=== PATIENT | female | born 1955 | race Caucasian/White ===

== ENCOUNTER 2022-09-02 10:22 | Emergency (ER) | payer OTHER, SELFPAY ==
--- NOTE | ~2022-09-02 | XR_ITS ---
XR hip RT min 3V w AP pelvis 09/02/2022 11:58 Indication: Right hip pain Procedure: AP pelvis and 2 views right hip Comparison: No prior studies for comparison. Findings: There is moderate osteoarthritis of the hips. There is possible avascular necrosis of the l eft femoral head. Pelvic rings are intact. Sacral foramen are symmetric. No acute fracture or traumat ic malalignment. Impression: 1: No acute fracture. 2: Moderate bilateral osteoarthritis of the hips with possible avascular necrosis of the left femora l head. Reviewed, dictated and finalized at location A. Impression: 1: No acute fracture. 2: Moderate bilateral osteoarthritis of the hips with possible avascular necro sis of the left femoral head.
--- NOTE | ~2022-09-02 | XR_ITS ---
XR lumbar spine 2-3V 09/02/2022 11:58 Indication: Back pain Procedure: 3 views lumbar spine Comparison: No prior studies for comparison. Findings: There is disc narrowing at L5-S1. Vertebral body heights are maintained. There is mild lowe r lumbar facet hypertrophy at L4-5 and L5-S1 there is atherosclerosis. Pedicles intact. Sacral forame n are symmetric. Impression: 1: Moderate lumbar spondylosis. Reviewed, dictated and finalized at location A. Impression: 1: Moderate lumbar spondylosis.
[2022-09-02 10:25] VITALS: BP 240/83; PULSE 91; RESP 16; TEMP 37.1; O2SAT 100
[2022-09-02 11:50] VITALS: BP 174/82; PULSE 89; RESP 18; O2SAT 99
--- NOTE | 2022-09-02 11:54 | ED.EXTPRO ---
HPI - Extremity Problem General Chief complaint: Extremity Problem,Nontraumatic Stated complaint: right hip and knee pain Time Seen by Provider: 09/02/22 11:32 Source: patient Mode of arrival: ambulatory Limitations: no limitations History of Present Illness HPI Narrative: This is a 67 year old female that presents to the ER for right hip pain present over the last month. Reports the pain is in the front of her right hip. It radiates into her thigh. It is worse with movement and ambulation. She has been taking anti-inflammatories and a muscle relaxer with little relief. Denies decreased range of motion or numbness. Related Data Allergies Allergy/AdvReac Type Severity Reaction Status Date / Time acetaminophen AdvReac Severe nausea, Verified 09/02/22 10:27 vomiting Review of Systems Review of Systems: CONSTITUTIONAL: Denies fever SKIN: Denies rash MUSCULOSKELETAL: Reports back pain, joint pain, and myalgia. NEUROLOGIC: Denies numbness, or weakness. All systems reviewed & are unremarkable except as noted in HPI and below PMFSH Past Medical History Medical History (Updated 09/02/22 @ 13:17 by Marianne Ohara PA-C) History of gastroesophageal reflux (GERD) Social History Social History (Updated 09/02/22 @ 11:58 by Marianne Ohara PA-C) Smoking status: Current every day smoker Exam Narrative: GENERAL: Well-appearing, well-nourished, and in no acute distress. HEAD: Normocephalic, atraumatic. EYES: EOMI. CHEST: No respiratory distress. HEART: Regular rate EXTREMITIES: Normal range of motion. No edema, erythema or obvious deformity. Normal DP pulse. Normal sensation. Strength equal in bilateral lower extremities (5/5) SKIN: Warm, dry, no rash. NEURO: No focal deficits. Alert and oriented x3. PSYCH: Normal mood and affect Course Vital Signs Vital signs: Vital Signs Temperature 98.7 F 09/02/22 10:25 Pulse Rate 91 09/02/22 10:25 Respiratory Rate 16 09/02/22 10:25 Blood Pressure 240/83 H 09/02/22 10:25 Pulse Oximetry 100 09/02/22 10:25 Oxygen Delivery Room Air 09/02/22 10:25 Temperature 98.7 F 09/02/22 10:25 Pulse Rate 89 09/02/22 11:50 Respiratory Rate 18 09/02/22 11:50 Blood Pressure 174/82 H 09/02/22 11:50 Pulse Oximetry 99 09/02/22 11:50 Oxygen Delivery Room Air 09/02/22 10:25 MDM - Extremity (Nontraumatic) MDM Narrative Medical decision making narrative: Patient presents to the ER for right hip pain ongoing over the last month. No recent injury or trauma. Pain is worse with weight bearing and movement. She is neurovascularly intact. No erythema or edema of the leg. Right hip/pelvis x-ray shows osteoarthritis. Also incidentally shows possible osteonecrosis of the left femoral head. Lumbar spine x-ray shows moderate lumbar spondylosis. Patient was updated on case findings. Instructed to rest, ice and continue over the counter pain medication and muscle relaxer as needed for pain. Will be given follow-up with orthopedics. She was given warnings to return to the ER Blood pressure incidentally noted to be elevated. Patient is asymptomatic. She was instructed to continue to monitor this and have close follow up with her primary for this as well. She does report she has an appointment to see her PCP in 2 days Imaging Data Radiologist's impression: ITS Impressions Lumbar Spine X-Ray 09/02/22 11:58 Impression: 1: Moderate lumbar spondylosis. Hip/Pelvis X-Ray 09/02/22 12:02 Impression: 1: No acute fracture. 2: Moderate bilateral osteoarthritis of the hips with possible avascular necrosis of the left femoral head. Critical Care Time Critical Care Time Critical Care Time: No Discharge Plan Discharge Clinical Impression: Acute pain of right hip, Hypertension Patient Disposition: Home, Self-Care Condition: Stable Instructions: Osteoarthritis (ED), Hypertension (ED), Hip Pain (ED) Additional Instructions: R
[2022-09-02] MEDS: KETOROLAC 30 MG/ML VIAL (*BKC) IM (13:08)
[2022-09-02 13:27] VITALS: BP 151/97; PULSE 80; RESP 18; O2SAT 98
== END 2022-09-02 13:29 | disposition home or self-care (01) ==
PROVIDERS: Emergency Provider Emergency Medicine; PCP Nurse Practitioner Family
DX: M25.551 Pain in right hip (principal); I10 Essential (primary) hypertension; K21.9 Gastro-esophageal reflux disease without esophagitis; F17.210 Nicotine dependence, cigarettes, uncomplicated; M47.816 Spondylosis without myelopathy or radiculopathy, lumbar region; M16.0 Bilateral primary osteoarthritis of hip
CPT/HCPCS: 72100; 73502; 96372; 99284; J1885

== ENCOUNTER 2022-12-04 09:48 | Outpatient (CLI) | payer OTHER, MEDICAID, SELFPAY ==
--- NOTE | 2022-12-04 10:44 | ECG_ITS ---
Measurements Intervals [place] Rate: 73 P: 71 CA: 124 QRS: 35 QRSD: 101 T: 57 QT: 389 QTc: 430 Interpretive Statements SINUS RHYTHM LEFT VENTRICULAR HYPERTROPHY AND ST-T CHANGE BASELINE ARTIFACT- I, II, III, AVR, AVL, AVF, V1-V6 BORDERLINE ECG NO PREVIOUS ECG AVAILABLE FOR COMPARISON Electronically Signed On 12-04-2022 11:13:03 ACTIVITIES DIRECTOR by Anthony Fernandez D.O.
[2022-12-04 11:11] LABS: Basophils Absolute Auto 0.1 K/mm3 (0.0-0.1); Basophils Percent Auto 0.4 % (0.2-1.2); Eosinophils Percent Auto 0.2 % (0-4.4); Hemoglobin 12.3 g/dL (12.0-15.0); Immature Granulocyte Absolute 0.08 K/mm3 (0.00-0.031); Immature Granulocyte Percent A 0.6 % (0-0.5); Mean Corpuscular HGB Conc 32.4 g/dl (32-36); Mean Corpuscular Hemoglobin 29.4 pg (26-34); Mean Corpuscular Volume 90.9 fl (80-100); Mean Platelet Volume 9.5 fl (7.4-10.4); Monocytes Absolute Auto 0.9 K/mm3 (0.1-0.6); Neutrophils Percent Auto 71.8 % (45.5-73.1); Platelet Count Result 362 k/mm3 (150-375); Red Blood Count 4.18 M/mm3 (4.2-5.4); White Blood Count 12.5 K/mm3 (4.5-10.0)
[2022-12-04 11:22] LABS: Albumin Level 3.8 g/dL (3.5-5.1); Anion Gap 8 mmol/L (8-16); Blood Urea Nitrogen 13 mg/dL (7-17); Calcium 8.6 mg/dL (8.4-10.2); Carbon Dioxide 25 mmol/L (22-30); Chloride 99 mmol/L (98-107); Estimated Glomerular Filt Rate > 60; Glucose 90 mg/dL (65-110); Potassium 3.4 mmol/L (3.4-5.0); Sodium 132 mmol/L (137-145)
[2022-12-04 11:26] LABS: Urine Cotinine NEGATIVE
[2022-12-04 11:33] LABS: Hemoglobin A1C 5.5 % (<5.7)
== END 2022-12-04 09:49 | disposition home or self-care (01) ==
PROVIDERS: PCP Nurse Practitioner Family; Visit Provider Orthopaedic Surgery
DX: M16.11 Unilateral primary osteoarthritis, right hip (principal); Z01.818 Encounter for other preprocedural examination
CPT/HCPCS: 80048; 80307; 82040; 83036; 85025; 87081; 93005

== ENCOUNTER 2022-12-18 00:43 | Day surgery (SDC) | payer OTHER, MEDICAID, SELFPAY ==
[2022-12-04 10:04] VITALS: BMI 23.1
--- NOTE | 2022-12-04 10:18 | PC.NURSE ---
Report to the Outpatient Waiting Room, entrance under the green pavilion located off [facility], at time __0600 on date __12/18/22 . Planned Procedure Time: __729 . Time changes happen often and if your time is changed the preop area will call you the afternoon before. - You and your visitor will be asked to self-screen and do not enter if you have any COVID symptoms. - Only one visitor is requested with a max of two and NO children visitors are allowed at this time. - The patient visitor may be requested to leave or wait in car when not with patient due to distancing restrictions. - A mask is optional within the hospital. Patients may have clear liquids (water, carbonated beverages, clear teas, apple juice) until 3 hours prior to surgery with a maximum of 20 ounces. - No food from midnight until time of surgery - Infants may have breast milk until 4 hours before surgery, formula 6 hours prior to surgery. - Children will be allowed to drink immediately following surgery. If applicable, please bring a bottle or sippy cup to assist with drinking. Juice, water, soda, and popsicles are readily available. For infants on formula, please bring formula the day of surgery. Pacifiers are allowed. Take the following medications with a SIP of water the morning of surgery: ____NONE Medications to discontinue per physician ____NONE Date to take last dose Please no make-up, nail croatian, hairspray, perfume, deodorant, or body powder the day of surgery. No jewelry (including any body piercings) or valuables the day of surgery, leave them at home. Please take a shower or bath the night before, or the morning of, surgery with an antibacterial soap. Wear comfortable, loose fitting clothing. Children are encouraged to wear pajamas. - Jewelry must be removed prior to entering the operating room. Rings and piercings that are not removed may be cut off. - The hospital will not accept responsibility for valuables. - Please leave all valuables, including medications, at home the day of surgery. If you are going home after surgery, a licensed tractor sweeper driver must drive you home. - NO public transportation without another adult if you receive anesthesia. - We recommend that an adult stay with you for 24 hours following discharge. - We also recommend that you do not drive, make important decision, drink alcoholic beverages, or take any drugs that were not prescribed by your health care provider for at least 24 hours after your discharge time. Follow any additional instructions given to you from your surgeon. If you or anyone in your household have experienced Covid symptoms in the past week, please notify your surgeon or the nurse liaison at the phone number below for possible testing. VERBAL AND WRITTEN instructions given to __PATIENT and asked if any additional questions and then verbalized understanding. Patient advised to call surgeon office or pre surgery nurse liaison [phone] if any additional questions.
[2022-12-04 10:40] VITALS: BP 188/73; PULSE 81; RESP 18; TEMP 37.6; O2SAT 98
--- NOTE | 2022-12-15 08:00 | PM.IMHP ---
H&P: HPI History of Present Illness Date/Time: 12/15/22 08:00 Chief Complaint: Avascular necrosis right hip Narrative: 67-year-old female patient Dr. Pereyra presents today hip she has symptoms since last year. She was originally seen August 2022. At that time she a 2 month spontaneous onset of pain right hip and groin area. By the time she was seen in August she was using cane full-time basis. She was started on anti-inflammatories. Due to changes on the x-ray patient was sent for an MRI scan the hip. MRI scan showed diffuse edema in the inferior 2/3 the femoral head neck. They also showed a network fracture lines extending the weight-bearing portion of the femoral head. This point patient is having continued symptoms in the hip. Anti-inflammatories were not working. The option of total hip arthroplasty was discussed the patient like to proceed with that, she presents today for that. Review of Systems Review of Systems: All systems reviewed & are unremarkable except as noted in HPI and below PMFSH Past Medical History Medical History History of gastroesophageal reflux (GERD) Social History Social History Smoking packs per day: 1 Smoking cigarettes per day: 20.0 Years smoked: 40 Smoking pack-years: 40.00 Smoking status: Former smoker Tobacco type: cigarettes Smoking end date: 10/23/22 Additional smoking assessment comments: DENIES ANY FORM OF TOBACCO USE Living arrangements: alone Spiritual care concerns: No Meds Home Medications and Allergies Home Medications Medication Instructions Recorded Confirmed Type omeprazole 40 mg capsule,delayed 40 mg PO QPM 12/04/22 12/18/22 History release Allergies Allergy/AdvReac Type Severity Reaction Status Date / Time acetaminophen AdvReac Severe nausea, Verified 12/18/22 06:37 vomiting Exam Narrative: CC 7-year-old female alert pleasant. She walks with a mild to moderate limp. Right hip has flexion to about 120 with moderate lateral hip pain. External rotation is to 30 internal rotation to 20 knee with the same anterior lateral hip pain. Moderate pain to the lateral hip to palpation. Stinchfield maneuver causes her moderate to severe lateral hip pain has normal abduction strength in a lateral position. 2+ dorsalis pedis and posterior artery pulse palpable. Normal sensation the right lower extremity skin around hip and groin crease are all normal. Resp: Auscultation: clear to auscultation bilaterally Cardio: Rate: regular rate Rhythm: regular rhythm Assessment and Plan Assessment and plan (1) Hip arthritis: Code(s): M16.10 - Unilateral primary osteoarthritis, unspecified hip Status: Acute Plan 67-year-old female has avascular necrosis of the right hip with significant pain and symptoms on a daily basis. Surgical procedure of anterior total hip arthroplasty was discussed and patient would like proceed. Surgical procedure as well as the risks and complications were discussed in detail questions were answered will proceed. Patient will order diclofenac and any other aspirin ibuprofen products 1 prior to surgery. She will see her primary care doctor pre-surgical clearance. Chem panel is all within normal limits creatinine 0.80 hemoglobin is 13.3, platelets 362. Patient's nasal swab was negative. She has recently quit smoking and her cotinine test was negative. Will plan to use Eliquis for DVT prophylaxis postoperatively.
[2022-12-18] VITALS (13 sets, daily range): BP systolic 115–204; BP diastolic 52–91; PULSE 59–75; RESP 12–20; TEMP 35.6–37.1; O2SAT 95–100
--- NOTE | ~2022-12-18 | XR_ITS ---
EXAMINATION: XR surgery orthopedic DATE: 12/18/2022 11:11 INDICATION: Intraoperative evaluation during right total hip arthroplasty TECHNIQUE: Frontal view of the right hip was obtained. COMPARISON: None. FINDINGS: Intraoperative image demonstrates placement of a right total hip arthroplasty which appears well seat ed in near anatomic alignment on the single image provided. Portions of the pelvis are excluded from the [id number]. No fractures in the visualized bones. IMPRESSION: 1. Expected appearance during right total hip arthroplasty. Reviewed, dictated and finalized at location B. UTER TECH
--- NOTE | ~2022-12-18 | XR_ITS ---
Right Hip Technique: AP and lateral views Clinical History: Status post hip arthroplasty Findings: Patient is status post right hip arthroplasty. Orthopedic hardware alignment appears anatom ic. No hardware complication is evident. Subcutaneous emphysema and swelling is likely postoperative in nature. No acute osseous fracture is seen. Impression: Status post total right hip arthroplasty, without evidence of hardware complication. Reviewed, dictated and finalized at location . R RESOURCE CONSULTANT Impression: Status post total right hip arthroplasty, without evidence of hardware complica tion.
--- NOTE | 2022-12-18 07:03 | WPDANESEPPF ---
Anes - Initial Pre Proc Eval Procedure: Operation Date: 12/18/22 07:30 Proposed Procedures p Right Total Hip Arthroplasty, Direct Anterior Approach - Bill Rmairez MD Date/Time: 12/18/22 07:03 Surgeon: Bill Ramirez MD Pre Op Diagnosis: AVN right hip Patient Data Age: 67 Gender: F Height: 1.5 m Weight: 51.4 kg Last Vital Signs Temp 37.6 C 12/04/22 10:40 Pulse 81 12/04/22 10:40 Resp 18 12/04/22 10:40 BP 188/73 H 12/04/22 10:40 Pulse Ox 98 12/04/22 10:40 O2 Del Method Room Air 12/04/22 10:40 Allergies Allergy/AdvReac Type Severity Reaction Status Date / Time acetaminophen AdvReac Severe nausea, Verified 12/18/22 06:37 vomiting Home Medications Medication Instructions Recorded Confirmed Type omeprazole 40 mg capsule,delayed 40 mg PO QPM 12/04/22 12/18/22 History release ECG: Date of Service: 12/04/22 Procedure(s): CA 12 lead EKG Accession Number(s): [id number] cc: ~ ? Measurements Intervals? [place]? Rate: ? 73 ? P:? 71 HI: ? 124? QRS:? 35 QRSD: ? 101? T:? 57 QT: ? 389? QTc:? 430? Interpretive Statements SINUS RHYTHM LEFT VENTRICULAR HYPERTROPHY AND ST-T CHANGE BASELINE ARTIFACT- I, II, III, AVR, AVL, AVF, V1-V6 BORDERLINE ECG NO PREVIOUS ECG AVAILABLE FOR COMPARISON Electronically Signed On 12-04-2022 11:13:03 EQUITY HOLDER by Anthony Fernandez D.O. Patient hx anesthesia problems: none Family hx anesthesia problems: none Results Review: All pre-operative results and documents have been reviewed as part of the pre-operative evaluation. [facility] Past Medical History Medical History History of gastroesophageal reflux (GERD) Social History Social History Smoking packs per day: 1 Smoking cigarettes per day: 20.0 Years smoked: 40 Smoking pack-years: 40.00 Smoking status: Former smoker Tobacco type: cigarettes Smoking end date: 10/23/22 Additional smoking assessment comments: DENIES ANY FORM OF TOBACCO USE Living arrangements: alone Spiritual care concerns: No Anes - Eval Final PreProcedure Day of Procedure 12/18/22 07:03 Patient weight: overweight Heart: regular rate and rhythm Lungs: clear to auscultation and normal air movement Airway: Mallampati scale class II Neurological: alert and oriented Last oral intake: >/= 8 hours ASA classification: II Emergent: no Anesthetic plan: proceed Anesthesia type and monitoring: general ETT Results Review: All pre-operative results and documents have been reviewed as part of the pre-operative evaluation. Informed Consent: The patient's anesthetic plan and its attendant risks and benefits were discussed with the patient/family/POA. Questions were solicited and answers provided to the satisfaction of the patient/family/POA.
--- NOTE | 2022-12-18 07:03 | SUR.PREOP ---
[id number] lugo and made aware wbc count 12.5 on 12/04/12.to proceed with surgery.
[2022-12-18] MEDS: LACTATED RINGERS 1,000 ML 30 ML IV CONT ×2 (07:12→11:18)
[2022-12-18] MEDS: TRANEXAMIC ACID 1,000MG/ISO100 1,000 MG/100 ML BAG 200 MG IVPB (07:13)
--- NOTE | 2022-12-18 07:14 | SUR.PREOP ---
no tylenol given with allergy.
--- NOTE | 2022-12-18 07:17 | WPDHPUPDATE1 ---
History and Physical Update Update Date/Time: 12/18/22 07:17 History and Physical has been reviewed, including an updated exam of the patient. There are NO changes in the patient's condition. Risks, benefits, and alternatives have been discussed and questions answered. Patient agrees to proceed with procedure.
[2022-12-18] MEDS: ceFAZolin 2 GM/D5W 50 ML 2 GM/50 ML BAG IVPB (07:29)
[2022-12-18] MEDS: ceFAZolin SODIUM 1 GM VIAL 3 GM (08:32)
[2022-12-18] MEDS: TRANEXAMIC ACID 1,000 MG/10 ML AMPUL 1000 MG IV PUSH (10:40)
[2022-12-18] MEDS: ceFAZolin SODIUM 1 GM VIAL 2 GM IV PUSH (10:44)
--- NOTE | 2022-12-18 11:37 | PM.OP ---
Procedure Note - Brief Procedure Note - Brief Date of procedure: 12/18/22 <KETAN Romano - Last Filed: 12/18/22 11:37> 12/18/22 <Bill Ramirez MD - Last Filed: 12/18/22 11:40> Pre-op diagnosis: AVN right hip <KETAN Romano - Last Filed: 12/18/22 11:37> Right hip DJD <KETAN Romano - Last Filed: 12/18/22 11:37> Procedure performed: Right anterior total hip arthroplasty <KETAN Romano - Last Filed: 12/18/22 11:37> Description of procedure: 67-year-old female who underwent right anterior total hip arthroplasty. I was involved procedure including positioning patient on OR table. assistant store director to time surgery as well as wound closure. He assisted in getting patient to recovery. Total time spent was 4 hours <KETAN Romano - Last Filed: 12/18/22 11:37> Surgeon: KETAN Romano <KETAN Romano - Last Filed: 12/18/22 11:37>
[2022-12-18] MEDS: hydrALAZINE HCL 20 MG/ML VIAL 10 MG IV PUSH (11:40)
--- NOTE | 2022-12-18 11:47 | P.OP_ITS ---
Procedure Note - Detailed Date of Procedure 12/18/22 Pre-op Diagnosis AVN right hip, stage IV Post-op Diagnosis Same Procedure Performed direct anterior approach right total hip arthroplasty Surgeon Bill Ramirez MD Appraisal Specialist Benedict Anesthesia General Description of Procedure Patient was brought to the operating room and general anesthesia was administered. The right was prepped draped usual fashion after applying the boots and extra padding transferring her to the OSI Matthews table is a fluoroscopy obtained an AP of the hip for overlay technique. She received 2 g Ancef weight based vancomycin 1 g of tranexamic acid preoperatively. A 10 cm longitudinal incision was made starting 3 cm lateral to the ASIS. The fascia over the tensor fascia darcie was exposed and longitudinally incised over its midportion. Interval between tensor fascia darcie and rectus femoris developed and crossing bundle from ascending lateral femoral circumflex vessels were isolated ligated with suture divided. Retractor was placed anterior to the capsule the hip abducted internally rotated gluteus minimus elevated off the lateral capsule. She had an effusion in the joint 1 could see. Inverted T capsulotomy was performed. Femoral neck osteotomy made according to preoperative templating. We knew that her neck cut was going a bit slower. Acetabular was exposed labrum excised remaining articular cartilage curetted. Leg was externally rotated extended and interval between conjoined tendon and piriformis incised. But the leg back in the horizontal position external rotation and traction acetabulum was exposed and we medialized with a 40 Reamer reamed up to a 45 and the 45 trial gave a tight fit. We lightly reamed with a 46 and chose the 46 shell which was seated fully at between 35 and 40? of abduction. Anteversion was set such that the anterior rim of the shell was just under the anterior edge of the acetabulum and with this was about flush with the posterior rim. Excellent Press-Fit was achieved bruise single screw placed in the ilium and 28 mm inner diameter liner fully seated. The femur was prepared using the table hook or elevation. We broached up to a size 3 which was the size we had templated for and we could see on fluoro that this was undersized deferment and then our neck cut was still too high. We countersunk about 4 mm and broached up to a size 4 which still had a little bit of wiggle at the appropriate depth and we broached to a 5 which was a solid fit. Intraoperative x-ray on fluoro showed that we were still about 2 mm longer than our desired lengthening of about 3 mm to 4 mm from preoperative leg length according to overlay technique. We countersunk the broach another 2 mm and then carefully calcar planed with a micro saw. The size 5 stem Actis standard offset was fully seated and had a nice tight fit. No fractures identified. We trialed with the +5 by 28 head which matched our preoperative plan of lengthening her about 4 mm. Offset was restored and felt to be about equal number preoperative offset. Shuck test showed appropriate soft tissue tension and stability. After thorough irrigation the size 5 ceramic femoral head was then packed and onto the trunnion which was cleaned and dried hip reduced stability reconfirmed. Local anesthetic cocktail injected. The capsular flaps were reapproximated with 2. Vicryl. The fascia was closed with running 1. Vicryl 2-0 subcutaneous Vicryl over a subcu drain and glue on the skin EBL was 200 cc. Cell Saver was utilized during the procedure but not enough blood loss to given back. Two additional g of Ancef 1 g TXA given time wound closure. No known complications. Estimated Blood Loss -200.0 Urine Output -200.0
--- NOTE | 2022-12-18 13:04 | ADMGEN ---
This patient, Ash Veliz, was admitted to [facility] Surg Room 305-01. Patient/family oriented to hospital policies and general routines including ID bracelet, bed and alarms, visiting hours, pain management, procedures, bathroom and other care routines, personal items, smoking policy, room service/diet, and visiting hours. Information on how to activate the Rapid Response Team has been discussed. Patient/Family are encouraged to report perceived risks to care and to ask questions if they do not understand what they are told or what they should do.
[2022-12-18] MEDS: oxyCODONE HCL (*CRX) 5 MG TAB IR PO (13:39)
[2022-12-18] MEDS: SODIUM CHLORIDE 0.9% IV 1,000 ML 125 ML IV CONT (13:41)
[2022-12-18] MEDS: ONDANSETRON INJ 4 MG/2 ML VIAL IV PUSH (14:40)
--- NOTE | 2022-12-18 16:50 | PCOTNOTE ---
Attempted to see pt. from occupational therapy evaluation. Pt. still nauseous and vomiting. Pt. educated on hip precautions and necessary adaptive equipment for maintaining precautions. Dinner arrived at pt. agreed that completion of evaluation would be more ideal tomorrow. Nursing aware.
[2022-12-18] MEDS: SENNA/DOCUSATE SODIUM TABLET 2 TAB PO (17:28)
[2022-12-18] MEDS: KETOROLAC 15 MG/ML VIAL (*BKC) IV PUSH ×2 (17:28→23:12)
[2022-12-18] MEDS: diphenhydrAMINE HCl INJ 50 MG/ML VIAL 12.5 MG IV PUSH (18:19)
[2022-12-18] MEDS: FAMOTIDINE 20 MG TABLET PO (20:39)
[2022-12-18] MEDS: SCOPOLAMINE 1.5 MG PATCH TRANSDERM (20:39)
[2022-12-19 02:33] VITALS: BP 182/83; PULSE 84; RESP 16; TEMP 36.4; O2SAT 93
[2022-12-19] MEDS: SODIUM CHLORIDE 0.9% IV 1,000 ML 125 ML IV CONT (02:55)
--- NOTE | 2022-12-19 05:22 | PC.NURSE ---
Pt has refused both administrations of IV tylenol this shift. Pt states that she is allergic to tylenol. Doctor was made aware during day shift and wanted to continue with administration. Pt was educated on medication by this RN.
--- NOTE | 2022-12-19 06:20 | PM.DS ---
DS: Admitting Diagnosis Discharge Date 12/19 Admitting Diagnosis right hip DJD DS: Summary Hospital Course Hospital Course: 67-year-old female underwent right anterior total hip arthroplasty on 12/18. Underwent the procedure without complications. Postoperatively she has been afebrile vital signs are stable. Neurovascularly she is intact. Her drain is. Dressing dry. She has been up walking to the restroom overnight multiple times the day of surgery. Pain is well controlled. She is on Eliquis for DVT prophylaxis. She is on Celebrex for the 1st 10 days for ectopic bone formation prophylaxis. She is weight-bearing as tolerated. Overall she is doing well. At time of dictation morning labs not completed yet. Patient work with therapy on 12/19 him be discharged home later that day. She is going to be taking Tylenol for pain control. She was having some issues with nausea which may have been coming from the low dose 2.5 mg of oxycodone. She will go home with this and can experiment on the medications to try to figure out what works well for her for pain control but does not make her nauseous. She also home on Senokot and MiraLax as well as Keflex for 2 weeks due to her recent history of smoking. Patient was advised any questions or concerns she is to call the office otherwise we will see her appointed date. Time Spent with Patient Time attestation: Total time spent providing and/or coordinating discharge services: DS: Data Data Completed and Pending Labs on day of discharge: Labs from last 24 hours 12/18/22 06:20 Blood Type O Positive Antibody Screen Negative Discharge Plan Discharge Patient Disposition: Home, Self-Care Discharge Instructions: BILL RAMIREZ M.D [facility], [address] [address] POST-OPERATIVE DISCHARGE INSTRUCTIONS ANTERIOR TOTAL HIP ARTHROPLASTY 1. Move toes/feet up and down every hour while awake. 2. Be up walking every hour while awake. 3. Use cane in hand opposite of side of hip surgery or walker as comfort allows. Avoid sitting in a chair unless eating, receiving visitors or using the toilet. 4. When resting, lie on back with leg elevated above heart to minimize swelling. Significant swelling could indicate a blood clot and if this occurs, call the office (or go to the ER) to have a venous ultrasound performed. 5. Wound Care: Keep dry sponge on wound for 2 weeks. Use minimal tape. Change dressing daily 6. Follow weight bearing status as instructed. 7. May shower with dressing off. Stand Alone Forms: General Discharge Instructions Follow-up/Referrals: Bill Ramirez MD [Physician] - Keep Reg. Scheduled Appt. Discharge Medications: New Eliquis 2.5 mg Tablet 2.5 mg PO Q12HR Qty: 70 0RF celecoxib [Celebrex] 200 mg Capsule 200 mg PO DAILY Qty: 10 0RF sennosides-docusate sodium [Senokot-S] 8.6-50 mg Tablet 2 tab-cap PO BID Qty: 60 0RF cephalexin 500 mg Capsule 500 mg PO TID Qty: 56 0RF polyethylene glycol 3350 [Miralax] 17 gram Powder In Packet 17 g PO QAM Qty: 30 0RF oxycodone 5 mg Tablet 2.5 mg PO Q4HR Qty: 40 0RF acetaminophen [Tylenol] 325 mg tablet 325 mg PO Q6H Qty: 60 0RF Rx Instructions: may take second tab q6h Continued omeprazole 40 mg Capsule,Delayed Release(Dr/Ec) 40 mg PO QPM
--- NOTE | 2022-12-19 06:24 | PM.PNORT ---
Subjective Subjective Date/Time Seen: 12/19/22 06:24 Postop day 1 patient is alert. Afebrile vital signs are stable. Morning labs him a been completed. Drain is out. Dressing is dry. Neurovascularly she is intact. She has been up multiple times overnight to the restroom. Pain is relatively well controlled. She did have some nausea yesterday and has refused narcotics as well as the IV Tylenol. We are going to hold narcotics this morning give her 1 more dose of IV Tylenol the see whether not Tylenol made her nauseated or whether it was the narcotics. Overall pain is very mild for. We will plan to have patient work with therapy today and be discharged home later today on 12/19. She was advised not to sit in the chair with leg pain down. She should keep leg elevated at home prevent swelling in the leg and thigh. Objective Data Vital Signs Vital Signs: Vital Signs - 24 hr 12/18/22 06:30 12/18/22 11:18 12/18/22 11:30 Temperature 37.1 C 36.1 C L Pulse Rate 75 68 72 Respiratory Rate 16 14 19 Blood Pressure 152/91 H 174/57 H 204/75 H Pulse Oximetry 100 100 99 Oxygen Delivery Room Air Simple Face Mask Simple Face Mask Oxygen Flow Rate 10 10 12/18/22 11:45 12/18/22 12:00 12/18/22 12:15 Temperature Pulse Rate 66 69 69 Respiratory Rate 14 12 13 Blood Pressure 163/67 H 157/53 H 122/52 L Pulse Oximetry 95 97 99 Oxygen Delivery Nasal Cannula Nasal Cannula Nasal Cannula Oxygen Flow Rate 2 2 2 12/18/22 12:30 12/18/22 12:45 12/18/22 13:03 Temperature 35.6 C L Pulse Rate 62 68 71 Respiratory Rate 12 13 14 Blood Pressure 120/53 L 130/56 L 130/59 L Pulse Oximetry 99 98 100 Oxygen Delivery Nasal Cannula Nasal Cannula Oxygen Flow Rate 2 2 12/18/22 13:33 12/18/22 15:34 12/18/22 13:00 Temperature 36.4 C L Pulse Rate 68 Respiratory Rate 14 Blood Pressure 132/64 Pulse Oximetry 100 98 Oxygen Delivery Room Air Nasal Cannula Oxygen Flow Rate 2 12/18/22 14:33 Temperature 35.9 C L Pulse Rate 59 L Respiratory Rate 18 Blood Pressure 115/61 Pulse Oximetry 100 Oxygen Delivery Oxygen Flow Rate Intake/Output Intake/Output: Intake & Output 12/16/22 12/17/22 12/18/22 12/19/22 23:59 23:59 23:59 23:59 Intake Total 1980 Output Total 200 Balance 1780 Meds/Results Medications: Active Medications Generic Name Dose Route Start Last Admin Trade Name Freq PRN Reason Stop Dose Admin Apixaban 2.5 mg 12/19/22 09:00 Apixaban 2.5 Mg Tablet PO Q12HR ALBERTO Celecoxib 200 mg 12/19/22 09:00 Celecoxib 200 Mg Capsule PO DAILY ALBERTO Cephalexin HCl 500 mg 12/19/22 13:00 Cephalexin 500 Mg Capsule PO TID ALBERTO Famotidine 20 mg 12/18/22 21:00 12/18/22 20:39 Famotidine 20 Mg Tablet PO 20 mg Q12HR ALBERTO Administration Hydroxyzine HCl 50 mg 12/18/22 12:48 Hydroxyzine Hcl 25 Mg Tablet PO Q4H PRN Itching Acetaminophen 650 mg in 65 mls @ 260 mls/hr 12/18/22 14:00 12/19/22 05:33 Ofirmev 650 Mg Ivpb IVPB 12/20/22 06:14 Not Given Q6HR ALBERTO Vancomycin HCl 1,000 mg in 250 mls @ 250 mls/hr 12/18/22 19:00 12/18/22 20:06 Vancomycin 1,000 Mg/D5w 250 Ml IVPB 12/19/22 07:59 250 mls/hr Q12H ALBERTO Administration Cefazolin Sodium 1 gm in 50 mls @ 100 mls/hr 12/18/22 15:00 12/18/22 23:14 Ancef 1 Gm/D5w 50 Ml Pm IVPB 12/19/22 07:29 100 mls/hr Q8H ALBERTO Administration Sodium Chloride 1,000 mls @ 125 mls/hr 12/18/22 12:48 12/19/22 02:55 Normal Saline Iv IV CONT 125 mls/hr .Q8H ALBERTO Administration Morphine Sulfate 2 mg 12/18/22 12:48 Morphine Sulfate (*Crx) 2 Mg/Ml Inj IV PUSH Q3H PRN Pain Rated 7-10 Naloxone HCl 0.1 mg 12/18/22 12:48 Naloxone Hcl 0.4 Mg/Ml Vial IV PUSH Q2M PRN Opiate Reversal Ondansetron HCl 4 mg 12/18/22 12:48 12/18/22 14:40 Ondansetron Inj 4 Mg/2 Ml Vial IV PUSH 4 mg Q4H PRN Administration Nausea And Vomiting Oxycodone HCl 2.5 mg 12/18/22 17:4
[2022-12-19 06:33] VITALS: BP 146/85; PULSE 99; RESP 14; TEMP 37.7; O2SAT 96
[2022-12-19 06:36] LABS: Basophils Percent Auto 0.3 % (0.2-1.2); Eosinophils Percent Auto 0.1 % (0-4.4); Hemoglobin 9.4 g/dL (12.0-15.0); Immature Granulocyte Absolute 0.06 K/mm3 (0.00-0.031); Immature Granulocyte Percent A 0.5 % (0-0.5); Lymphocytes Absolute Auto 1.79 K/mm3 (0.9-3.2); Lymphocytes Percent Auto 15.4 % (18.3-44.2); Mean Corpuscular HGB Conc 32.4 g/dl (32-36); Mean Corpuscular Hemoglobin 29.8 pg (26-34); Mean Corpuscular Volume 92.1 fl (80-100); Mean Platelet Volume 9.8 fl (7.4-10.4); Monocytes Absolute Auto 0.7 K/mm3 (0.1-0.6); Monocytes Percent Auto 5.9 % (2.6-8.5); Neutrophils Percent Auto 77.8 % (45.5-73.1); Platelet Count Result 251 k/mm3 (150-375); Red Blood Count 3.15 M/mm3 (4.2-5.4); Red Cell Distribution Width 13.2 % (11.5-14.5); White Blood Count 11.6 K/mm3 (4.5-10.0)
[2022-12-19 06:44] LABS: Anion Gap 4 mmol/L (8-16); Blood Urea Nitrogen 10 mg/dL (7-17); Carbon Dioxide 25 mmol/L (22-30); Chloride 100 mmol/L (98-107); Estimated Glomerular Filt Rate 50; Glucose 96 mg/dL (65-110); Potassium 3.8 mmol/L (3.4-5.0); Sodium 129 mmol/L (137-145)
[2022-12-19 07:24] LABS: Vitamin D 25 Hydroxy < 12.8 ng/mL
[2022-12-19] MEDS: polyethylene glycoL 3350 17 GM POWD.PACK PO (08:18)
[2022-12-19] MEDS: SENNA/DOCUSATE SODIUM TABLET 2 TAB PO (08:19)
[2022-12-19] MEDS: FAMOTIDINE 20 MG TABLET PO (08:19)
[2022-12-19] MEDS: APIXABAN 2.5 MG TABLET PO (08:19)
[2022-12-19] MEDS: CELECOXIB 200 MG CAPSULE PO (08:19)
[2022-12-19] MEDS: oxyCODONE HCL (*CRX) 5 MG TAB IR PO ×2 (08:20→12:43)
--- NOTE | 2022-12-19 09:29 | WPDANESPN ---
Anes - Prog Note Post-Op Date/Time: 12/19/22 09:29 Cardiovascular status: normal Respiratory status: normal Airway patency: baseline Mental status: baseline Post-Op hydration status: normal Vital Signs: Last Vital Signs Temp 37.7 C H 12/19/22 06:33 Pulse 99 12/19/22 06:33 Resp 14 12/19/22 06:33 BP 146/85 H 12/19/22 06:33 Pulse Ox 96 12/19/22 06:33 O2 Del Method Room Air 12/18/22 15:34 O2 Flow Rate 2 12/18/22 13:00 Pain Score (VAS): 01/05 I/O: Intake & Output 12/18/22 12/19/22 12/19/22 23:59 07:59 15:59 Intake Total 1565 450 Output Total 200 Balance 1365 450 Laboratory Tests 12/19/22 06:02 12/19/22 06:02 12/19/22 12/19/22 12/19/22 06:02 06:02 06:02 WBC 11.6 H RBC 3.15 L Hgb 9.4 L Hct 29.0 L MCV 92.1 MCH 29.8 MCHC 32.4 RDW 13.2 Plt Count 251 MPV 9.8 Immature Gran % (Auto) 0.5 Neut % (Auto) 77.8 H Lymph % (Auto) 15.4 L [place] % (Auto) 5.9 Eos % (Auto) 0.1 Baso % (Auto) 0.3 Lymph # (Auto) 1.79 [place] # (Auto) 0.7 H Eos # (Auto) 0.0 Baso # (Auto) 0.0 Abs Immat Gran (auto) 0.06 H Absolute Neuts (auto) 9.0 H Absolute Nucleated RBC 0.0 Nucleated RBC % 0.0 Sodium 129 L Potassium 3.8 Chloride 100 Carbon Dioxide 25 Anion Gap 4 L BUN 10 Creatinine 1.10 H Estim Creat Clear Calc Not Reportable Estimated GFR 50 L Glucose 96 Calcium 8.0 L Vitamin D 25-Hydroxy < 12.8 Post-procedural complaints: none Patient Feedback: Patient satisfied with anesthetic care.
[2022-12-19 10:29] VITALS: BP 115/64; PULSE 81; RESP 18; TEMP 36.8; O2SAT 96
[2022-12-19] MEDS: CEPHALEXIN 500 MG CAPSULE PO (12:44)
== END 2022-12-19 16:10 | disposition home or self-care (01) ==
LOC: ANHSURGERY 06:17 → ANH3MEDSUR 12:58
PROVIDERS: Physician Assistant Surgical; PCP Nurse Practitioner Family; Visit Provider Orthopaedic Surgery
PROC: (CPT 27130; principal; 2022-12-18 07:30)
DX: M87.851 Other osteonecrosis, right femur (principal); K21.9 Gastro-esophageal reflux disease without esophagitis; Z87.891 Personal history of nicotine dependence
CPT/HCPCS: 27130; 36415; 73501; 80048; 80307; 82040; 82306; 83036; 85025; 86850; 86900; 86901; 87081; 93005; 97110; 97116; 97161; 97165; 97530; 97535; 99199; A9270; C1776; J0131; J0171; J0360; J0690; J1100; J1170; J1200; J1885; J2250; J2270; J2405; J2704; J2710; J2795; J3010; J3370; J7030; J7040; J7120

== ENCOUNTER 2023-08-29 10:22 | Observation (INO) | payer MEDICARE, MEDICAID, SELFPAY ==
[2023-08-29] VITALS (40 sets, daily range): BP systolic 130–265; BP diastolic 58–130; PULSE 67–92; RESP 14–24; TEMP 36.2–36.5; O2SAT 96–100; BMI 23.2
--- NOTE | ~2023-08-29 | NM_ITS ---
EXAMINATION: NM diana stress w perfusion DATE: 08/30/2023 13:04 INDICATION: Abnormal EKG TECHNIQUE: Rest images were obtained following intravenous administration of 8.4 mCi Tc99m tetrofosmi n (Myoview). The patient was infused intravenously with Lexiscan (Regadenoson). Then, 28.37 mCi Tc99m tetrofosmin (Myoview) was administered intravenously, and stress images were obtained. Data was vince nstructed into short axis and horizontal and vertical long axis SPECT images. Gated SPECT images were also obtained. COMPARISON: None. FINDINGS: Small mild partially reversible perfusion defect at the mid anterolateral segment consisten t with combination of ischemia and infarct. There is normal left ventricular chamber size, wall nahid on and ejection fraction. Left ventricular ejection fraction measures >70%. IMPRESSION: 1. Small mild partially reversible perfusion defect consistent with combination of infarct and ischem ia at the mid inferolateral segment. 2. Left ventricular ejection fraction measuring >70%. Reviewed, dictated and finalized at location A. IMPRESSION: 1. Small mild partially reversible perfusion defect consistent with combination of infarct and ischemia at the mid inferolateral segment. 2. Left ventricular ejection fraction measuring >70%.
--- NOTE | ~2023-08-29 | XR_ITS ---
Clinical Indication: Hypertension AP and lateral views of the chest: Comparison: None Findings: The lungs are clear, without evidence of focal consolidation or pleural effusion. Cardiome diastinal silhouette is within normal limits. Suspected small to moderate sliding hiatal hernia noted on the frontal projection. Osseous structures are intact. Impression: Clear lungs. Suspected small to moderate sliding hiatal hernia seen on frontal view. Reviewed, dictated and finalized at location . Impression: Clear lungs. Suspected small to moderate sliding hiatal hernia seen on frontal view.
--- NOTE | 2023-08-29 10:34 | ECG_ITS ---
Measurements Intervals [place] Rate: 78 P: 69 CO: 131 QRS: 34 QRSD: 98 T: 117 QT: 362 QTc: 415 Interpretive Statements SINUS RHYTHM POSSIBLE LEFT ATRIAL ENLARGEMENT [-0.1mV P WAVE IN V1/V2] LEFT VENTRICULAR HYPERTROPHY AND ST-T CHANGE [VOLTAGE CRITERIA PLUS ST/T ABNORMALITY] COMPARED TO ECG 12/04/2022 11:08:43 NO SIGNIFICANT CHANGES Electronically Signed On 08-29-2023 19:14:42 CDT by Zina Erwin M.D.
--- NOTE | 2023-08-29 10:45 | ED.RECABL ---
HPI - Recheck/Abnormal Lab/Rx General Chief Complaint: Recheck/Abnormal Lab/Rx <JASS Medina Last Filed: 08/29/23 18:08> Stated Complaint: high BP, sent from PCP <JASS Medina Last Filed: 08/29/23 18:08> Time Seen by Provider: 08/29/23 10:32 <JASS Medina Last Filed: 08/29/23 18:08> Source: patient <JASS Medina Last Filed: 08/29/23 18:08> Mode of arrival: ambulatory <JASS Medina Filed: 08/29/23 18:08> Limitations: no limitations <JASS Medina Filed: 08/29/23 18:08> History of Present Illness HPI narrative: Patient is a 68 y/o female who presents to the ED with c/o hypertension and heart murmur. Patient reports she saw her primary care doctor today for a routine physical and was told she had a heart murmur. She was also found to be hypertensive in the office. Patient was then sent here for further evaluation. Patient states she has been told her blood pressure has been elevated in the past, though typically related to doctors appointments and anxiety. She is not currently on any medicines for hypertension. She has never been told she has heart murmur before. Patient denies any other symptoms. She states she has been feeling slightly fatigued lately, but denies dizziness, lightheadedness, headache, vision changes, focal weakness or numbness, chest pain, shortness of breath, palpitations, lower extremity pain or swelling. <JASS Medina Last Filed: 08/29/23 18:08> Related Data Home Medications: Home Medications Medication Instructions Recorded Confirmed omeprazole 40 mg capsule,delayed 40 mg PO QPM 12/04/22 08/29/23 release <JASS Medina Last Filed: 08/29/23 18:08> Allergies/Adverse Reactions: Allergies Allergy/AdvReac Type Severity Reaction Status Date / Time acetaminophen AdvReac Severe nausea, Verified 12/18/22 06:37 vomiting <Lore Mak PA-C - Last Filed: 08/29/23 18:08> Review of Systems Review of Systems: CONSTITUTIONAL: Reports fatigue. Denies fever, chills, or sweats. EYES: Denies visual changes. CARDIOVASCULAR: Denies chest pain, palpitations, or edema. RESPIRATORY: Denies cough or dyspnea. GASTROINTESTINAL: Denies abdominal pain, nausea, vomiting. MUSCULOSKELETAL: Denies back pain, joint pain, or myalgia. NEUROLOGIC: Denies headache, numbness, or weakness. <Lore Mak PA-C - Last Filed: 08/29/23 18:08> All systems reviewed & are unremarkable except as noted in HPI and below <Lore Mak PA-C - Last Filed: 08/29/23 18:08> PMFSH Past Medical History Medical History: Medical History History of gastroesophageal reflux (GERD) <Lore Mak PA-C - Last Filed: 08/29/23 18:08> Social History Social History: Social History Smoking packs per day: 0.5 Smoking cigarettes per day: 10.0 Years smoked: 40 Smoking pack-years: 20.00 Smoking status: Former smoker Tobacco type: cigarettes Smoking end date: 10/23/22 Alcohol intake: never Substance use: never Lack of Transportation: No Lack of Food: Never True Current Housing: I Have Housing Concerned About Future Housing: No Difficulty Paying Gas/Electric Bills: No Difficulty Paying for Meds: No Currently Unemployed: No Education: High School Diploma/GED Difficulty w/ Childcare or Family Care: No Living arrangements: alone Spiritual care concerns: No <Lore Mak PA-C - Last Filed: 08/29/23 18:08> Exam Narrative: GENERAL: Elderly, well-nourished, non-toxic, in no acute distress. HEAD: Normocephalic, atraumatic. NECK: Supple. No adenopathy, no masses. RESPIRATORY: Airway patent, respirations nonlabored. Clear to auscultation bilaterally,
[2023-08-29 10:52] LABS: Basophils Absolute Auto 0.1 K/mm3 (0.0-0.1); Basophils Percent Auto 0.7 % (0.2-1.2); Eosinophils Absolute Auto 0.1 K/mm3 (0-0.3); Eosinophils Percent Auto 0.8 % (0-4.4); Hematocrit 40.1 % (37.0-47.0); Hemoglobin 12.5 g/dL (12.0-15.0); Immature Granulocyte Absolute 0.05 K/mm3 (0.00-0.031); Immature Granulocyte Percent A 0.6 % (0-0.5); Lymphocytes Absolute Auto 2.57 K/mm3 (0.9-3.2); Lymphocytes Percent Auto 29.1 % (18.3-44.2); Mean Corpuscular HGB Conc 31.2 g/dl (32-36); Mean Corpuscular Hemoglobin 27.6 pg (26-34); Mean Corpuscular Volume 88.5 fl (80-100); Mean Platelet Volume 9.5 fl (7.4-10.4); Monocytes Absolute Auto 0.5 K/mm3 (0.1-0.6); Monocytes Percent Auto 5.3 % (2.6-8.5); Neutrophils Absolute Auto 5.6 K/mm3 (1.3-6.7); Neutrophils Percent Auto 63.5 % (45.5-73.1); Platelet Count Result 375 k/mm3 (150-375); Red Blood Count 4.53 M/mm3 (4.2-5.4); Red Cell Distribution Width 13.7 % (11.5-14.5); White Blood Count 8.8 K/mm3 (4.5-10.0)
[2023-08-29 11:01] LABS: Alanine Aminotransferase 18 U/L (6-35); Albumin Level 4.4 g/dL (3.5-5.1); Alkaline Phosphatase 83 U/L (38-126); Anion Gap 10 mmol/L (8-16); Aspartate Amino Transferase 31 U/L (14-36); Bilirubin,Total 0.5 mg/dL (0.2-1.3); Blood Urea Nitrogen 6 mg/dL (7-17); Calcium 9.2 mg/dL (8.4-10.2); Carbon Dioxide 26 mmol/L (22-30); Chloride 95 mmol/L (98-107); Estimated CRCL calculation 38 ml/min; Estimated Glomerular Filt Rate > 60; Glucose 148 mg/dL (65-110); Lipase 95 U/L (23-300); Potassium 3.3 mmol/L (3.4-5.0); Sodium 131 mmol/L (137-145)
[2023-08-29 11:07] LABS: Prothrombin Time 13.3 Seconds (11.1-14.7)
[2023-08-29 11:08] LABS: Partial Thromboplastin Time 34.2 SECONDS (22.3-36.8)
[2023-08-29 11:12] LABS: Troponin I < 0.012 ng/mL (0.000-0.034)
[2023-08-29 11:21] LABS: NT Pro B Type Natriuretic Pept 2030 pg/mL (19.9-100)
--- NOTE | 2023-08-29 13:56 | PC.NURSE ---
food tray ordered
[2023-08-29 14:17] LABS: Troponin I < 0.012 ng/mL (0.000-0.034)
[2023-08-29] MEDS: POTASSIUM CHLORIDE 20 MEQ ER TABLET 40 MEQ PO (14:25)
[2023-08-29] MEDS: lisinopriL 5 MG TABLET PO (14:26)
[2023-08-29] MEDS: hydrALAZINE HCL 20 MG/ML VIAL 10 MG IV PUSH (15:02)
--- NOTE | 2023-08-29 15:30 | ECG_ITS ---
Measurements Intervals [place] Rate: 88 P: 60 FL: 131 QRS: 24 QRSD: 94 T: 103 QT: 367 QTc: 446 Interpretive Statements SINUS RHYTHM LEFT VENTRICULAR HYPERTROPHY AND ST-T CHANGE [VOLTAGE CRITERIA PLUS ST/T ABNORMALITY] COMPARED TO ECG 08/29/2023 10:39:[address] DEPRESSION IS MORE PRONOUNCED Electronically Signed On 08-29-2023 19:18:34 CDT by Zina Erwin M.D.
--- NOTE | 2023-08-29 15:54 | ECG_ITS ---
Measurements Intervals [place] Rate: 83 P: 64 AR: 136 QRS: 29 QRSD: 91 T: 72 QT: 362 QTc: 426 Interpretive Statements SINUS RHYTHM Abnormal R-wave progression; I suspect this is may be a posterior EKG showing some slight ST and T-wave changes in V5 and V6. Electronically Signed On 08-29-2023 19:24:03 CDT by Zina Erwin M.D.
[2023-08-29 16:58] LABS: Troponin I < 0.012 ng/mL (0.000-0.034)
--- NOTE | 2023-08-29 18:46 | ADMGEN ---
This patient, Ash Veliz, was admitted to IMU Room 214-01 at 1844. Patient/family oriented to hospital policies and general routines including ID bracelet, bed and alarms, visiting hours, pain management, procedures, bathroom and other care routines, personal items, smoking policy, room service/diet, and visiting hours. Information on how to activate the Rapid Response Team has been discussed. Patient/Family are encouraged to report perceived risks to care and to ask questions if they do not understand what they are told or what they should do.
--- NOTE | 2023-08-29 21:34 | PM.IMHP ---
H&P: HPI History of Present Illness Date/Time: 08/29/23 21:34 Chief Complaint: Hypertension Narrative: 68-year-old female presents here with asymptomatic hypertension with past medical history of GERD and tobacco use (0.75 ppd, 40 years). Patient presents here from her primary care office with asymptomatic hypertension and new heart murmur. patient was at the office for a routine physical. During her evaluation she was found to be hypertensive, 260/120 and PCP able to appreciated a new heart murmur on exam that was previously not heard. patient was transferred to the emergency department where her blood pressure was 162/90 on arrival. Patient remained asymptomatic. She denied headache, dizziness, vision changes, chest pain, shortness a breath. During further evaluation she was found to have an elevated BNP of 2,030 with no previous history of congestive heart failure. She denies any lower extremity swelling. Her pressure was stabilized and Attempts were made to contact primary office in order to schedule follow-up. While patient was being set up for discharge her blood pressure became elevated again with a systolic >250. she was given IV hydralazine and a repeat EKG was performed. EKG showed worsening ST depression. Patient continued to deny symptoms. Of note, patient reports that her mother had CAD and was scheduled for a CABG. she had no prior symptoms or knowledge of heart disease or high blood pressure before being diagnosed with CAD requiring a CABG. Her mother sadly during the surgery. HPI obtained from patient history, ED provider report, and chart review. Review of Systems Review of Systems: She denies dizziness, headache, vision changes, syncope, shortness of breath, palpitations, numbness or tingling in her hands, recent illness, cardiac history. All systems reviewed & are unremarkable except as noted in HPI and below [facility] Past Medical History Medical History (Updated 08/29/23 @ 21:39 by Molly Morataya APRN) History of gastroesophageal reflux (GERD) Surgical History Surgical History (Updated 08/29/23 @ 22:03 by Molly Morataya APRN) History of right hip replacement Family History Family History (Updated 08/29/23 @ 22:05 by Molly Morataya APRN) Mother Heart disease Diagnosed with CAD and scheduled for CABG in same visit, was asymptomatic prior to this. during CABG. Sibling Heart disease brother x2 Grandparent Cardiomyopathy Social History Social History (Updated 08/29/23 @ 22:10 by Molly Morataya, [employer]) Social History: Lives at home alone with dogs (x2) and cat (x1). Smoking packs per day: 0.75 Smoking cigarettes per day: 15.0 Years smoked: 40 Smoking pack-years: 30.00 Smoking status: Former smoker Tobacco type: cigarettes Smoking end date: 10/23/22 Alcohol intake: never Substance use: never Lack of Transportation: No Lack of Food: Never True Current Housing: I Have Housing Concerned About Future Housing: No Difficulty Paying Gas/Electric Bills: No Difficulty Paying for Meds: No Currently Unemployed: No Education: High School Diploma/GED Difficulty w/ Childcare or Family Care: No Living arrangements: alone Spiritual care concerns: No Meds Home Medications and Allergies Home Medications Medication Instructions Recorded Confirmed Type omeprazole 40 mg capsule,delayed 40 mg PO QPM 12/04/22 08/29/23 History release Allergies Allergy/AdvReac Type Severity Reaction Status Date / Time acetaminophen AdvReac Severe nausea, Verified 12/18/22 06:37 vomiting Vital Signs Vital Signs - 24 hr 08/29/23 10:23 08/29/23 12:00 08/29/23 12:55 Temperature 97.7 F Pulse Rate 80 67 70 Respiratory Rate 18 16 17 Blood Pressure 162/90 H 178/86 H 201/118 H Pulse Oximetry 100 98 99 Oxygen Delivery Room Air 08/29/23 14:31 08/29/23 13:06 08/29/23 13:15 Temperature Pulse R
[2023-08-29] MEDS: PANTOPRAZOLE 40 MG TABLET PO (21:43)
[2023-08-30] VITALS (10 sets, daily range): BP systolic 151–169; BP diastolic 66–71; PULSE 64–88; RESP 16–18; TEMP 36.5–36.8; O2SAT 98–100
[2023-08-30 05:07] LABS: Basophils Percent Auto 0.5 % (0.2-1.2); Eosinophils Absolute Auto 0.1 K/mm3 (0-0.3); Eosinophils Percent Auto 1.5 % (0-4.4); Hematocrit 34.1 % (37.0-47.0); Hemoglobin 10.8 g/dL (12.0-15.0); Immature Granulocyte Absolute 0.05 K/mm3 (0.00-0.031); Immature Granulocyte Percent A 0.6 % (0-0.5); Lymphocytes Absolute Auto 3.04 K/mm3 (0.9-3.2); Lymphocytes Percent Auto 35.6 % (18.3-44.2); Mean Corpuscular HGB Conc 31.7 g/dl (32-36); Mean Corpuscular Hemoglobin 27.7 pg (26-34); Mean Corpuscular Volume 87.4 fl (80-100); Mean Platelet Volume 9.6 fl (7.4-10.4); Monocytes Absolute Auto 0.6 K/mm3 (0.1-0.6); Monocytes Percent Auto 6.7 % (2.6-8.5); Neutrophils Absolute Auto 4.7 K/mm3 (1.3-6.7); Neutrophils Percent Auto 55.1 % (45.5-73.1); Platelet Count Result 323 k/mm3 (150-375); Red Cell Distribution Width 13.7 % (11.5-14.5); White Blood Count 8.5 K/mm3 (4.5-10.0)
[2023-08-30 05:18] LABS: Alanine Aminotransferase 16 U/L (6-35); Albumin Level 3.6 g/dL (3.5-5.1); Alkaline Phosphatase 69 U/L (38-126); Anion Gap 5 mmol/L (8-16); Aspartate Amino Transferase 25 U/L (14-36); Bilirubin,Total 0.5 mg/dL (0.2-1.3); Blood Urea Nitrogen 13 mg/dL (7-17); Calcium 9.3 mg/dL (8.4-10.2); Carbon Dioxide 27 mmol/L (22-30); Chloride 98 mmol/L (98-107); Estimated CRCL calculation 35 ml/min; Estimated Glomerular Filt Rate 55; Glucose 95 mg/dL (65-110); Potassium 4.5 mmol/L (3.4-5.0); Sodium 130 mmol/L (137-145)
--- NOTE | 2023-08-30 06:00 | ECHO_ITS ---
Patient Info Name: Ash Veliz Age: 68 years : 1955 Gender: Female Ht: 60 in Wt: 118 lbs BSA: 1.51 m2 HR: 69 bpm BP: 151 / 71 mmHg Heart Rhythm: Sinus Rhythm Technical Quality: Good Exam Date: 08/30/2023 9:05 AM Exam Location: [facility] Patient Status: Outpatient Admit Date: 08/29/2023 Staff Ordering Physician: Lore Mak PA-C Geodetic Technician: Luzmaria Moreno RDCS Attending Provider: Tad Trevizo MD Referring Physician: Aubere RAY; Exam Type: CA echo doppler color flow Study Info Indications - elevated bnp, new dx of chf Complete two-dimensional, color flow and Doppler transthoracic echocardiogram is performed. Summary 1. Complete two-dimensional, color flow and Doppler transthoracic echocardiogram is performed. 2. Left ventricular chamber dimension is normal. 3. Left ventricular systolic function is normal, estimated at 60-65%. 4. There is moderately increased left ventricular wall thickness. 5. The left ventricular diastolic function is grade I diastolic dysfunction. 6. Right ventricular systolic function is normal. 7. Left atrial chamber dimension is mildly enlarged. 8. No significant valvular disease. Left Ventricle Left ventricular chamber dimension is normal. Left ventricular systolic function is normal, estimated at 60-65%. There is moderately increased left ventricular wall thickness. The left ventricular diastolic function is grade I diastolic dysfunction. Right Ventricle Right ventricular chamber dimension is normal. Right ventricular systolic function is normal. Left Atria Left atrial chamber dimension is mildly enlarged. Right Atria Right atrial chamber dimension is normal. Atrial Septum Intact interatrial septum visualized by color flow imaging. Aortic Valve The aortic valve is probable trileaflet. There is mild aortic valve sclerosis. There is no aortic valve stenosis. There is no aortic valve regurgitation. Pulmonic Valve The pulmonic valve is not well visualized. There is no pulmonic regurgitation. Mitral Valve There is trace mitral valve regurgitation. The mitral valve annulus is moderately calcified. Tricuspid Valve There is trace tricuspid valve regurgitation. Pericardium/Pleural There is no pericardial effusion. Inferior Vena Cava Normal inferior vena cava with >50% collapse upon inspiration consistent with normal right atrial pressure, 3 mmHg. Aorta The aortic root size at the sinus of Valsalva is normal. Left Ventricular Outflow Tract Name Value Normal LVOT 2D LVOT Diameter 2.0 cm LVOT Doppler LVOT Peak Gradient 5 mmHg LVOT Mean Gradient 3 mmHg LVOT VTI 32 cm LVOT VTI/AV VTI Ratio 0.9 LVOT Stroke Volume 97 ml LVOT CO 6.8 l/min LVOT CI 4.5 l/min/m2 Pulmonic Valve Name Value Normal RVOT Doppler
[2023-08-30] MEDS: ENOXAPARIN 40 MG/0.4 ML SYRINGE SUB-Q (09:32)
[2023-08-30] MEDS: lisinopriL 5 MG TABLET PO (09:32)
[2023-08-30] MEDS: ASPIRIN 81 MG ENTERIC TABLET PO (09:32)
[2023-08-30] MEDS: PANTOPRAZOLE 40 MG TABLET PO (09:32)
--- NOTE | 2023-08-30 11:26 | PM.CNCAR ---
Assessment and Plan Assessment and plan (1) Hypertensive urgency: Code(s): I16.0 - Hypertensive urgency Status: Acute Assessment and Plan: Improved now. Continue with Lisinopril 5mg, likely will need to increase dose for better blood pressure control. Echocardiogram ordered and pending. (2) Elevated brain natriuretic peptide (BNP) level: Code(s): R79.89 - Other specified abnormal findings of blood chemistry Status: Acute Assessment and Plan: Elevated BNP level, but clinically, no signs of heart failure. Echo ordered and pending. (3) Abnormal EKG: Code(s): R94.31 - Abnormal electrocardiogram [ECG] [EKG] Status: Acute Assessment and Plan: Her first EKG 08/29 shows sinus rhythm, possible left atrial enlargement, LVH with secondary repolarization abnormalities. Repeat EKG when her SBP went >250mmHg showed sinus rhythm, LVH with secondary repolarization abnormalities with more pronounced inferolateral ST depressions. Her third EKG shows sinus rhythm with what appears to be leads placed in the posterior position. Her troponins are negative x 3. The EKG changes with more pronounced ST depressions certainly could be from hypertensive urgency when her blood pressure went >250s systolics. Patient is without any chest pain or other cardiac symptoms. Echo pending. Treadmill nuclear stress test was ordered by primary, team, however, given her baseline STTW abnormalities, prefer Lexiscan instead of treadmill. Therefore, I will change to Lexiscan. (4) Tobacco use: Code(s): Z72.0 - Tobacco use Status: Acute Assessment and Plan: Encouraged smoking cessation. Plan If echocardiogram and stress test without significant abnormality, then from a cardiac standpoint, she could be discharged later this afternoon (if her blood pressure remains okay as well). History of Present Illness History of Present Illness Consult date/time: 08/30/23 11:26 Requesting physician: Lore Mak PA-C Consult reason: Other (Hypertensive urgency, EKG changes, CHF) Reason For Visit: hypertensive urgenncy,chf,abnormal Narrative: Reason for consult: Hypertensive urgency, EKG changes, CHF HPI: Patient is a 68-year-old female with tobacco dependence and GERD who presented to [facility] from her primary care office with asymptomatic hypertension and heart murmur. During her evaluation she was found to be hypertensive, 260/120mmHg and PCP able to?appreciate a new heart murmur on exam that was previously not heard.? Patient was sent to the ED where her blood pressure was 162/90 on arrival.? Patient?remained asymptomatic. ER workup showed elevated BNP of 2030. CXR with clear lungs. Attempts were made to contact primary office in order to schedule follow-up.? While patient was being set up for discharge her blood pressure became elevated again with a systolic >250.? She was given IV hydralazine and a repeat EKG was performed. EKG showed worsening ST depression.? Patient continued to deny symptoms. Patient admitted for further evaluation. Her troponin levels are negative x 3. TSH level WNL. Her first EKG 08/29 shows sinus rhythm, possible left atrial enlargement, LVH with secondary repolarization abnormalities. Repeat EKG when her SBP went >250mmHg showed sinus rhythm, LVH with secondary repolarization abnormalities with more pronounced inferolateral ST depressions. Her third EKG shows sinus rhythm with what appears to be leads placed in the posterior position. She has been started on Lisinopril 5mg QD for her blood pressure with improvement. Patient denies any chest pain, palpitations, shortness of breath or other symptoms. Her mother during CABG in her 80s. Patient smokes 1PPD for the past 20-30 years or so. Review of Systems Review of Systems: All systems reviewed & are unremarkable except as noted in HPI and below (HPI) [facility] Past Medical History Medical History (Reviewe
--- NOTE | 2023-08-30 11:39 | EST_ITS ---
Patient Info Name: Ash Veliz Age: 68 years : 1955 Gender: Female Ht: 60 in Wt: 118 lbs BSA: 1.51 m2 HR: 71 bpm BP: 128 / 84 mmHg Heart Rhythm: Sinus Rhythm Exam Date: 08/30/2023 12:10 PM Exam Location: [facility] Stress Patient Status: Inpatient Admit Date: 08/29/2023 Staff Ordering Physician: Danielle Sosa MD Attending Provider: Tad Trevizo MD Exercise Technologist: Geraldine Baker, KYLIE Nurse: Kathleen Rizvi APN Exam Type: CA stress diana w NM Study Info Indications - st changes A regadenoson stress test was performed. Summary 1. Non-diagnostic ECG response due to resting STTW abnormalities. 2. Please correlate with nuclear medicine images, reported separately. 3. Stress test supervised by Kathleen Rizvi NP. Stress test interpreted by Danielle Sosa MD. Protocol: Lexiscan Stress ECG Details Stage: REST Duration (min): 2 min : 14 sec HR (bpm): 70 SBP (mmHg): 128 DBP (mmHg): 84 Stage: REST Duration (min): 9 min : 32 sec HR (bpm): 72 SBP (mmHg): 128 DBP (mmHg): 84 Stage: STAGE 1 Duration (min): 1 min : 0 sec HR (bpm): 87 SBP (mmHg): 170 DBP (mmHg): 63 Stage: RECOVERY Duration (min): 1 min : 0 sec HR (bpm): 103 SBP (mmHg): 170 DBP (mmHg): 63 Stage: RECOVERY Duration (min): 2 min : 0 sec HR (bpm): 98 SBP (mmHg): 170 DBP (mmHg): 63 Stage: RECOVERY Duration (min): 3 min : 0 sec HR (bpm): 91 SBP (mmHg): 170 DBP (mmHg): 63 Stage: RECOVERY Duration (min): 3 min : 29 sec HR (bpm): 92 SBP (mmHg): 106 DBP (mmHg): 61 Rest HR: 72 bpm Peak HR: 104 bpm Rest Sys BP: 128 mmHg Peak Sys BP: 170 mmHg Max Pred HR: 153 bpm % Max Pred HR: 68 % Target HR: 130 bpm Max RPP: 17,680 bpm*mmHg Total Time: 1 min : 0 sec Rest Bolton BP: 84 mmHg Peak Bolton BP: 63 mmHg Total Dose: 0.4 mg Resting ECG Sinus rhythm. Left ventricular hypertrophy with secondary repolarization abnormalities. Stress ECG Sinus tachycardia. Non-diagnostic ECG response due to resting STTW abnormalities. Arrhythmias None. Report Signatures
--- NOTE | 2023-08-30 14:41 | PM.DS ---
DS: Admitting Diagnosis Discharge Date 08/30/2023 Admitting Diagnosis Hypertension DS: Discharge Diagnosis Discharge Diagnosis (1) Elevated brain natriuretic peptide (BNP) level: Code(s): R79.89 - Other specified abnormal findings of blood chemistry Status: Acute (2) Hypertensive urgency: Code(s): I16.0 - Hypertensive urgency Status: Acute (3) Abnormal EKG: Code(s): R94.31 - Abnormal electrocardiogram [ECG] [EKG] Status: Acute (4) Elevated glucose: Code(s): R73.09 - Other abnormal glucose Status: Acute DS: Summary Hospital Course Hospital Course: 1. elevated BNP ?BNP 2029 ?echo reviewed. Normal EF diastolic dysfunction no valvular abnormality 2. hypertensive urgency ?initial blood pressure:? 201/118,? last documented blood pressure 134/58 ?given hydralazine 10 mg IV push and lisinopril 5 mg p.o. in the ED ?start lisinopril 5 mg p.o. daily and 81 mg ASA daily this has been titrated to 10 mg Blood pressure optimal on 10 mg needs titration as an outpatient basis 3. abnormal EKG Likely a strain pattern from hypertension and left ventricular hypertrophy. Serial troponin negative Echo with normal ejection fraction moderately increased left ventricular wall thickness grade 1 diastolic dysfunction no significant valvular abnormality. Stress test performed: Small mild partially reversible perfusion defect consistent with combination of infarct and ischemia at mid inferolateral segment. LVEF more than 70% Cardiology consulted. Medical management recommended particularly blood pressure control She will follow-up as an outpatient basis 4. elevated glucose ?glucose on BMP in the ED was 148 ?last A1c 5.5 in November of 2022.? Will repeat. Chronic Conditions - GERD: continue home pantoprazole b.i.d. Diet:? heart healthy, NPO at midnight GI Prophylaxis:? continue home medication, pantoprazole DVT Prophylaxis:? SCD, Lovenox 40 Lines: pIV Code Status:? full code Time Spent with Patient Time attestation: Total time spent providing and/or coordinating discharge services: 35 minutes Exam Narrative: GENERAL: Elderly, well-nourished, non-toxic, in no acute distress. HEAD: Normocephalic, atraumatic. NECK: Supple. No adenopathy, no masses. RESPIRATORY: Airway patent, respirations nonlabored. Clear to auscultation bilaterally, no rales, rhonchi, wheezing. CARDIOVASCULAR: Regular rate and rhythm.? No appreciable murmur.? Radial pulses 2+ and equal bilaterally. ABDOMINAL: Soft, nontender, nondistended, no hepatosplenomegaly. Normoactive BS. MUSCULOSKELETAL: Moves all extremities. Strength/ROM intact without gross deformities.? No edema.? No calf tenderness. SKIN: Warm, dry, normal color. No rashes. NEURO: A&O X3. Speech clear. Cranial nerves II-XII grossly intact. Steady gait. No ataxic movements.? No focal deficits. PSYCHIATRIC: Appropriate mood and affect. Normal interaction. DS: Data Data Completed and Pending Completed studies during hospitalization: Exam Type: ? ? CA echo doppler color flow Study Info Indications ?? ? - elevated bnp, new dx of chf Complete two-dimensional, color flow and Doppler transthoracic echocardiogram is performed. Account #: ? ? [id number] Summary ? 1. Complete two-dimensional, color flow and Doppler transthoracic echocardiogram is performed. ? 2. Left ventricular chamber dimension is normal. ? 3. Left ventricular systolic function is normal, estimated at 60-65%. ? 4. There is moderately increased left ventricular wall thickness. ? 5. The left ventricular diastolic function is grade I diastolic dysfunction. ? 6. Right ventricular systolic function is normal. ? 7. Left atrial chamber dimension is mildly enlarged. ? 8. No significant valvular disease. Left Ventricle ? Left ventricular chamber dimension is normal. ? Left ventricular systolic function is normal, estimated at 60-65%. ? There is moderately increased left ventricula
== END 2023-08-30 15:32 | disposition home or self-care (01) ==
LOC: ANHED 17:07 → ANHIMU 18:14
PROVIDERS: Student in an Organized Health Care Education/Training Program; Admitting Provider Chiropractor; Emergency Provider Physician Assistant; PCP Nurse Practitioner Family; Visit Provider Internal Medicine
DX: I16.0 Hypertensive urgency (principal); R79.89 Other specified abnormal findings of blood chemistry; R94.31 Abnormal electrocardiogram [ECG] [EKG]; R01.1 Cardiac murmur, unspecified; R53.83 Other fatigue; R73.09 Other abnormal glucose; I08.0 Rheumatic disorders of both mitral and aortic valves; K21.9 Gastro-esophageal reflux disease without esophagitis; K44.9 Diaphragmatic hernia without obstruction or gangrene; Z87.891 Personal history of nicotine dependence; Z82.49 Family history of ischemic heart disease and other diseases of the circulatory system
CPT/HCPCS: 36415; 71046; 78452; 80053; 83690; 83880; 84443; 84484; 85025; 85610; 85730; 93005; 93017; 93306; 96372; 96374; 99285; A9270; A9502; G0378; J0360; J1650; J2785

== ENCOUNTER 2024-10-25 15:15 | Emergency (ER) | payer MEDICARE, SELFPAY ==
[2024-10-25] VITALS (23 sets, daily range): BP systolic 149–206; BP diastolic 67–89; PULSE 72–98; RESP 13–26; TEMP 36.4; O2SAT 82–100
--- NOTE | ~2024-10-25 | XR_ITS ---
EXAMINATION: XR chest 2V Exam Date/Time: 10/25/2024 16:50 DRIVABILITY TECHNICIAN HISTORY: Patient had possible neuro symptoms but seems normal at ER Comparison: 08/29/2023. RESULT: Lines, tubes, and devices: None. Lungs and pleura: Emphysematous/senescent change. Otherwise clear. Cardiomediastinal silhouette: Stable. Small hiatal hernia. Prominent pericardial fat pad. Other: No acute osseous or upper abdominal finding. IMPRESSION: No acute cardiopulmonary process. Reviewed, dictated and finalized at location K. ABILITY TECHNICIAN
--- NOTE | ~2024-10-25 | CT_ITS ---
EXAMINATION: CTA brain carotid DATE: 10/25/2024 18:41 INDICATION: Right side weakness TECHNIQUE: Computed tomographic angiography (CTA) of the head was performed without and with 100 mL O mnipaque-350 intravenous contrast. CTA of the neck was performed with intravenous contrast. Automated exposure control and iterative reconstruction technique were employed. The dose-length product was 1 559.57 mGy-cm. Maximum intensity projection and volume rendered 3D-reconstructions were created by mark wetzel technologist on a separate workstation. COMPARISON: None. FINDINGS: CT BRAIN: No acute large vessel infarct, intracranial hemorrhage, mass, or hydrocephalus. Ethmoid and sphenoid and right maxillary mucosal thickening, aerated secretions in the right sphenoid sinus with surroundi ng sclerosis. Mild atrophy and chronic white matter change. Atherosclerotic intracranial calcificatio n. Bilateral lens replacements. CTA HEAD: No large vessel occlusion, aneurysm, high flow vascular malformation, nidus or extravasation. Symmetr ic parenchymal enhancement. Patent cerebral veins. CTA NECK: Aortic arch and proximal great vessels: Moderate arch calcification. Normal arch anatomy.. Right common carotid, carotid bifurcation, and internal carotid artery: Moderate calcified and noncal cified carotid and bifurcation plaque.There is 34% stenosis of the proximal right internal carotid ar viri relative to normal distal artery lumen diameter (NASCET criteria). Left common carotid, carotid bifurcation, and internal carotid artery: Moderate calcified and noncalc ified carotid and bifurcation plaque.There is 0% stenosis of the proximal left internal carotid arter y relative to normal distal artery lumen diameter (NASCET criteria). Vertebral arteries: No significant plaque or stenosis. Left vertebral artery is dominant. Other findings: Mild degenerative change in the cervical spine. Azygos lobe. IMPRESSION: No acute detail process. No large vessel intracranial occlusion, high-grade intracranial stenosis, or aneurysm. No carotid or vertebral artery occlusion, dissection, or significant stenosis. Reviewed, dictated and finalized at location K. CAL SUPPLY TECHNICIAN IMPRESSION: No acute detail process. No large vessel intracranial occlusion, high-grade intracranial stenosis, or an eurysm. No carotid or vertebral artery occlusion, dissection, or significant stenosis.
--- NOTE | 2024-10-25 16:29 | ECG_ITS ---
Test Date: 2024-10-25 18:04:36 Measurements Intervals [place] Rate: 76 P: 67 FL: 130 QRS: 37 QRSD: 100 T: 71 QT: 364 QTc: 410 Interpretive Statements SINUS RHYTHM LEFT VENTRICULAR HYPERTROPHY AND ST-T CHANGE BORDERLINE ST-T WAVE ABNORMALITY- INF/LAT LEADS BASELINE ARTIFACT- V1-V2 BORDERLINE ECG No previous ECG available for comparison Electronically Signed On 10-25-2024 21:55:12 ACCOUNTS RECEIVABLE BOOKKEEPER by Anthony Fernandez D.O.
[2024-10-25 17:18] LABS: Basophils Absolute Auto 0.1 K/mm3 (0.0-0.1); Basophils Percent Auto 0.7 % (0.2-1.2); Eosinophils Absolute Auto 0.4 K/mm3 (0-0.3); Eosinophils Percent Auto 4.2 % (0-4.4); Hemoglobin 7.4 g/dL (12.0-15.0); Immature Granulocyte Absolute 0.13 K/mm3 (0.00-0.031); Immature Granulocyte Percent A 1.3 % (0-0.5); Lymphocytes Absolute Auto 1.38 K/mm3 (0.9-3.2); Lymphocytes Percent Auto 14.1 % (18.3-44.2); Mean Corpuscular HGB Conc 30.8 g/dl (32-36); Mean Corpuscular Hemoglobin 23.5 pg (26-34); Mean Corpuscular Volume 76.2 fl (80-100); Mean Platelet Volume 8.9 fl (7.4-10.4); Monocytes Absolute Auto 0.5 K/mm3 (0.1-0.6); Monocytes Percent Auto 5.3 % (2.6-8.5); Neutrophils Absolute Auto 7.3 K/mm3 (1.3-6.7); Neutrophils Percent Auto 74.4 % (45.5-73.1); Platelet Count Result 442 k/mm3 (150-375); Red Blood Count 3.15 M/mm3 (4.2-5.4); Red Cell Distribution Width 16.5 % (11.5-14.5); White Blood Count 9.8 K/mm3 (4.5-10.0)
[2024-10-25 17:32] LABS: Ethanol < 10 mg/dL (<10)
[2024-10-25 17:33] LABS: Alanine Aminotransferase 16 U/L (6-35); Albumin Level 4.1 g/dL (3.5-5.1); Alkaline Phosphatase 69 U/L (38-126); Anion Gap 7 mmol/L (4-12); Aspartate Amino Transferase 35 U/L (14-36); Bilirubin,Total 0.4 mg/dL (0.2-1.3); Blood Urea Nitrogen 19 mg/dL (7-17); Calcium 9.6 mg/dL (8.4-10.2); Carbon Dioxide 22 mmol/L (22-30); Chloride 95 mmol/L (98-107); Estimated CRCL calculation 34 ml/min; Estimated Glomerular Filt Rate 55; Glucose 96 mg/dL (65-110); Potassium 4.4 mmol/L (3.4-5.0); Sodium 124 mmol/L (137-145)
[2024-10-25 17:42] LABS: Troponin I < 0.012 ng/mL (0.000-0.034)
--- NOTE | 2024-10-25 18:28 | ED_ITS ---
HPI - Neuro Symptoms/Deficit General Chief Complaint: Neuro Symptoms/Deficit <Abraham King MD - Last Filed: 10/25/24 20:47> Stated Complaint: neuro <Abraham King MD - Last Filed: 10/25/24 20:47> Time Seen by Provider: 10/25/24 16:19 <Abraham King MD - Last Filed: 10/25/24 20:47> Source: patient and family <Abraham King MD - Last Filed: 10/25/24 20:47> Mode of arrival: ambulatory <Abraham King MD - Last Filed: 10/25/24 20:47> Limitations: no limitations <Abraham King MD - Last Filed: 10/25/24 20:47> History of Present Illness HPI Narrative: This is a 69-year-old female, with history of hypertension on aspirin, bro ught in by family for right-sided facial droop, slurred speech and lightheadedness. The patient's daughter at bedside states at 14:00, the patient developed the symptoms while and a CT station. These lasted approximately 45 minutes and have since resolved. The patient refused ambulance transfer at the time. The patient denies any recent change in her health or medications. She denies chest pain, shortness of breath, abdominal pain, bleeding of any kind or loss of consciousness. She has no other complaints at this time. <Abraham King MD - Last Filed: 10/25/24 20:47> Related Data Home Medications: Home Medications Medication Instructions Recorded Confirmed omeprazole 40 mg capsule,delayed 40 mg PO QPM 12/04/22 08/29/23 release <Abraham King MD - Last Filed: 10/25/24 20:47> Allergies/Adverse Reactions: Allergies Allergy/AdvReac Type Severity Reaction Status Date / Time acetaminophen AdvReac Severe nausea, Verified 12/18/22 06:37 vomiting <Abraham King MD - Last Filed: 10/25/24 20:47> Review of Systems Review of Systems: All systems reviewed & are unremarkable except as noted in HPI and below <Abraham King MD - Last Filed: 10/25/24 20:47> PMF Past Medical History Medical History: Medical History (Updated 10/25/24 @ 20:10 by Abraham King MD) History of gastroesophageal reflux (GERD) Hypertension <Abraham King MD - Last Filed: 10/25/24 20:47> Surgical History Surgical History: Surgical History History of right hip replacement <Abraham King MD - Last Filed: 10/25/24 20:47> Family History Family History: Family History Mother Heart disease Diagnosed with CAD and scheduled for CABG in same visit, was asymptomatic prior to this. during CABG. Sibling Heart disease brother x2 Grandparent Cardiomyopathy <Abraham King MD - Last Filed: 10/25/24 20:47> Social History Social History: Social History Social History: Lives at home alone with dogs (x2) and cat (x1). Smoking packs per day: 0.75 Smoking cigarettes per day: 15.0 Years smoked: 40 Smoking pack-years: 30.00 Smoking status: Former smoker Tobacco type: cigarettes Smoking end date: 10/23/22 Alcohol intake: never Substance use: never Lack of Transportation: No Lack of Food: Never True Current Housing: I Have Housing Concerned About Future Housing: No Difficulty Paying Gas/Electric Bills: No Difficulty Paying for Meds: No Currently Unemployed: No Education: High School Diploma/GED Difficulty w/ Childcare or Family Care: No Living arrangements: alone Spiritual care concerns: No <Abraham King MD - Last Filed: 10/25/24 20:47> Course Course Emergency Course: 20:05 - CBC demonstrates hemoglobin of 7.4, down from 10.31 year ago. White blood cell count and platelets within normal limits. Chemistries demonstrate hyponatremia with sodium of 124, down from 130 in August 2023 but is otherwise unremarkable. Troponin negative. UA and urine drug screen negative. Alcohol level negative. CT angiogram and is non con of the head not concerning for acute intracranial process, hemorrhage or large vessel occlusion. Chest x-ray unremarkable. I discussed the patient with [facility] neurologist, Dr. Galvez, who agrees with transfer though recommends doing so to [facility]. The patient is comfortable with this plan. 20:47 - Patient signed out to overnight ED physician, Dr[facility]une[facility] <Abraham King MD - Last Filed: 10/25/24 20:47> 20:05 - CBC demonstrates hemoglobin of 7.4, down from 10.31 year ago. White blood cell count and platelets within normal limits. Chemistries demonstrate hyponatremia with sodium of 124, down from 130 in August 2023 but is otherwise unremarkable. Troponin negative. UA and urine drug screen negative. Alcohol level negative. CT angiogram and is non con of the head not concerning for acute intracranial process, hemorrhage or large vessel occlusion. Chest x-ray unremarkable. I discussed the patient with [facility] neurologist, Dr. Galvez, who agrees with transfer though recommends doing so to [facility]. The patient is comfortable with this plan. 20:47 - Patient signed out to overnight ED physician, Dr. Nunez pending discussion with [facility] hospitalist for transfer. Patient signed out to me at 8:45 p.m. by previous physician. Patient had a transient ischemic attack type symptoms including facial droop and slurring of her speech both of which have resolved. I did review her laboratory studies and she is slightly hyponatremic but she has been low before in the 130s and upper 120s. She does endorse drinking lots of water recently. Patient otherwise has had resolution of symptoms while here in the emergency department and was pending transfer to [facility] for neurology evaluation given her TIA. Patient is hemodynamically stable without any complaints a this time. I did receive a call from the [facility] transfer center and spoke to the hospitalist Dr. Lacey who after went over the imaging studies, laboratory assessment and CT scans accepted her to a neuro tele bed at [facility]. Pending bed availability for transfer. Bed has been assigned and patient has been transported successfully via [facility] ambulance. <Cain Nunez MD - Last Filed: 10/26/24 07:31> Vital Signs Vital signs: Vital Signs Temperature 36.4 C L 10/25/24 15:27 Pulse Rate 94 10/25/24 15:27 Respiratory Rate 14 10/25/24 15:27 Blood Pressure 150/84 H 10/25/24 15:27 Pulse Oximetry 100 10/25/24 15:27 Temperature 36.4 C L 10/25/24 15:27 Pulse Rate 80 10/26/24 00:49 Respiratory Rate 17 10/26/24 00:49 Blood Pressure 149/89 H 10/25/24 23:31 Pulse Oximetry 99 10/26/24 00:49 <Abraham King MD - Last Filed: 10/25/24 20:47> Vital Signs Temperature 36.4 C L 10/25/24 15:27 Pulse Rate 94 10/25/24 15:27 Respiratory Rate 14 10/25/24 15:27 Blood Pressure 150/84 H 10/25/24 15:27 Pulse Oximetry 100 10/25/24 15:27 Temperature 36.4 C L 10/25/24 15:27 Pulse Rate 80 10/26/24 00:49 Respiratory Rate 17 10/26/24 00:49 Blood Pressure 149/89 H 10/25/24 23:31 Pulse Oximetry 99 10/26/24 00:49 <Cain Nunez MD - Last Filed: 10/26/24 07:31> MDM - Neuro Symptoms/Deficit MDM Narrative Medical decision making narrative: Plan: Labs, imaging, Neurology consultation, reassess <Abraham King MD - Last Filed: 10/25/24 20:47> Differential Diagnosis Differential diagnosis: Likely other (Intracranial hemorrhage, stroke, metabolic abnormality, urinary tract infection, drug/alcohol intoxication, other) <Abraham King MD - Last Filed: 10/25/24 20:47> Lab Data Result diagrams: 10/25/24 17:12 10/25/24 17:12 <Abraham King MD - Last Filed: 10/25/24 20:47> Labs: Lab Results 10/25/24 10/25/24 Range/Units 17:12 18:47 WBC 9.8 (4.5-10.0) K/mm3 RBC 3.15 L (4.2-5.4) M/mm3 Hgb 7.4 L D (12.0-15.0) g/dL Hct 24.0 L (37.0-47.0) % MCV 76.2 L (80-100) fl MCH 23.5 L (26-34) pg MCHC 30.8 L (32-36) g/dl RDW 16.5 H (11.5-14.5) % Plt Count 442 H (150-375) k/mm3 MPV 8.9 (7.4-10.4) fl Immature Gran % (Auto) 1.3 H (0-0.5) % Neut % (Auto) 74.4 H (45.5-73.1) % Lymph % (Auto) 14.1 L (18.3-44.2) % [place] % (Auto) 5.3 (2.6-8.5) % Eos % (Auto) 4.2 (0-4.4) % Baso % (Auto) 0.7 (0.2-1.2) % Lymph # (Auto) 1.38 (0.9-3.2) K/mm3 [place] # (Auto) 0.5 (0.1-0.6) K/mm3 Eos # (Auto) 0.4 H (0-0.3) K/mm3 Baso # (Auto) 0.1 (0.0-0.1) K/mm3 Abs Immat Gran (auto) 0.13 H (0.00-0.031) K/mm3 Absolute Neuts (auto) 7.3 H (1.3-6.7) K/mm3 Absolute Nucleated RBC 0.000 (0.0-0.012) K/mm3 Nucleated RBC % 0.0 (0.0-0.2) % Sodium 124 L (137-145) mmol/L Potassium 4.4 (3.4-5.0) mmol/L Chloride 95 L (98-107) mmol/L Carbon Dioxide 22 (22-30) mmol/L Anion Gap 7 (4-12) mmol/L BUN 19 H (7-17) mg/dL Creatinine 1.00 (0.7-1.0) mg/dL Estim Creat Clear Calc 34 ml/min Estimated GFR 55 L (59 - ) Glucose 96 (65-110) mg/dL Calcium 9.6 (8.4-10.2) mg/dL Total Bilirubin 0.4 (0.2-1.3) mg/dL AST 35 (14-36) U/L ALT 16 (6-35) U/L Alkaline Phosphatase 69 (38-126) U/L Troponin I < 0.012 (0.000-0.034) ng/mL Total Protein 7.0 (6.3-8.2) g/dL Albumin 4.1 (3.5-5.1) g/dL Urine Color Yellow (Yellow) Urine Appearance Clear (Clear) Urine pH 6.5 (5.0-9.0) Ur Specific [place] 1.011 (1.001-1.035) Urine Protein Negative (Negative) mg/dL Urine Glucose (UA) Negative (Negative) mg/dL Urine Ketones Negative (Negative) mg/dL Ur Blood (Man) Negative (Negative) Urine Nitrate Negative (Negative) Urine Bilirubin Negative (Negative) Urine Urobilinogen 0.2 (<2.0) mg/dL Leukocyte Esterase Rfl Negative (Negative) JOHN/UL Urine Opiates Screen Negative (Negative) Urine Methadone Screen Negative (Negative) Ur Barbiturates Screen Negative (Negative) Ur Phencyclidine Scrn Negative (Negative) Ur Amphetamine Screen Negative (Negative) U Benzodiazepines Scrn Negative (Negative) Urine Cocaine Screen Negative (Negative) U Cannabinoids Screen Negative (Negative) Ethyl Alcohol < 10 (<10) mg/dL <Abraham King MD - Last Filed: 10/25/24 20:47> Lab Results 10/25/24 10/25/24 Range/Units 17:12 18:47 WBC 9.8 (4.5-10.0) K/mm3 RBC 3.15 L (4.2-5.4) M/mm3 Hgb 7.4 L D (12.0-15.0) g/dL Hct 24.0 L (37.0-47.0) % MCV 76.2 L (80-100) fl MCH 23.5 L (26-34) pg MCHC 30.8 L (32-36) g/dl RDW 16.5 H (11.5-14.5) % Plt Count 442 H (150-375) k/mm3 MPV 8.9 (7.4-10.4) fl Immature Gran % (Auto) 1.3 H (0-0.5) % Neut % (Auto) 74.4 H (45.5-73.1) % Lymph % (Auto) 14.1 L (18.3-44.2) % [place] % (Auto) 5.3 (2.6-8.5) % Eos % (Auto) 4.2 (0-4.4) % Baso % (Auto) 0.7 (0.2-1.2) % Lymph # (Auto) 1.38 (0.9-3.2) K/mm3 [place] # (Auto) 0.5 (0.1-0.6) K/mm3 Eos # (Auto) 0.4 H (0-0.3) K/mm3 Baso # (Auto) 0.1 (0.0-0.1) K/mm3 Abs Immat Gran (auto) 0.13 H (0.00-0.031) K/mm3 Absolute Neuts (auto) 7.3 H (1.3-6.7) K/mm3 Absolute Nucleated RBC 0.000 (0.0-0.012) K/mm3 Nucleated RBC % 0.0 (0.0-0.2) % Sodium 124 L (137-145) mmol/L Potassium 4.4 (3.4-5.0) mmol/L Chloride 95 L (98-107) mmol/L Carbon Dioxide 22 (22-30) mmol/L Anion Gap 7 (4-12) mmol/L BUN 19 H (7-17) mg/dL Creatinine 1.00 (0.7-1.0) mg/dL Estim Creat Clear Calc 34 ml/min Estimated GFR 55 L (59 - ) Glucose 96 (65-110) mg/dL Calcium 9.6 (8.4-10.2) mg/dL Total Bilirubin 0.4 (0.2-1.3) mg/dL AST 35 (14-36) U/L ALT 16 (6-35) U/L Alkaline Phosphatase 69 (38-126) U/L Troponin I < 0.012 (0.000-0.034) ng/mL Total Protein 7.0 (6.3-8.2) g/dL Albumin 4.1 (3.5-5.1) g/dL Urine Color Yellow (Yellow) Urine Appearance Clear (Clear) Urine pH 6.5 (5.0-9.0) Ur Specific [place] 1.011 (1.001-1.035) Urine Protein Negative (Negative) mg/dL Urine Glucose (UA) Negative (Negative) mg/dL Urine Ketones Negative (Negative) mg/dL Ur Blood (Man) Negative (Negative) Urine Nitrate Negative (Negative) Urine Bilirubin Negative (Negative) Urine Urobilinogen 0.2 (<2.0) mg/dL Leukocyte Esterase Rfl Negative (Negative) JOHN/UL Urine Opiates Screen Negative (Negative) Urine Methadone Screen Negative (Negative) Ur Barbiturates Screen Negative (Negative) Ur Phencyclidine Scrn Negative (Negative) Ur Amphetamine Screen Negative (Negative) U Benzodiazepines Scrn Negative (Negative) Urine Cocaine Screen Negative (Negative) U Cannabinoids Screen Negative (Negative) Ethyl Alcohol < 10 (<10) mg/dL <Cain Nunez MD - Last Filed: 10/26/24 07:31> ECG Data EKG #1: Attestation: I personally reviewed and interpreted this ECG as follows: <Abraham King MD - Last Filed: 10/25/24 20:47> ECG completion date: 10/25/24 <Abraham King MD - Last Filed: 10/25/24 20:47> ECG completion time: 18:04 <Abraham King MD - Last Filed: 10/25/24 20:47> Prior ECG tracings: not available for review <Abraham King MD - Last Filed: 10/25/24 20:47> Interpretation: Sinus rhythm, rate 76, normal axis, no ST segment elevations concerning for ischemia, T-wave inversion in V6. Vitals with QTC of 410. <Abraham King MD - Last Filed: 10/25/24 20:47> Discharge Plan Discharge Clinical Impression: TIA (transient ischemic attack), Acute hyponatremia, Anemia <Abraham King MD - Last Filed: 10/25/24 20:47> Patient Disposition: Acute Care Hospital <Abrahma King MD - Last Filed: 10/25/24 20:47> Condition: Serious <Abraham King MD - Last Filed: 10/25/24 20:47> Instructions: Antibiotic Form <Abraham King MD - Last Filed: 10/25/24 20:47> Prescriptions: No Action omeprazole 40 mg Capsule,Delayed Release(Dr/Ec) 40 mg PO QPM Rx Instructions: 1800 aspirin 81 mg Tablet,Delayed Release (Dr/Ec) 81 mg PO QAM Qty: 30 0RF lisinopril 10 mg Tablet 10 mg PO QAM Qty: 30 0RF <Abraham King MD - Last Filed: 10/25/24 20:47> Follow-up/Referrals: Marino,Pebbles Snider NP [Primary Care Provider] - <Abraham King MD - Last Filed: 10/25/24 20:47> Time of Disposition: 01:00 <Abraham King MD - Last Filed: 10/25/24 20:47> 01:00 <Cain Nunez MD - Last Filed: 10/26/24 07:31>
[2024-10-25 19:01] LABS: Add Urine Microscopic? NO; Appearance Urine Clear (Clear); Bilirubin Urine Negative (Negative); Blood Urine Negative (Negative); Color Urine Yellow (Yellow); Glucose Urine UA Negative (Negative); Ketones Urine Negative (Negative); Leukocyte Esterase Ur Negative LEU/UL (Negative); Nitrate Urine Negative (Negative); Protein Urine Negative (Negative); Specific Grav Ur 1.011 (1.001-1.035); Urobilinogen Urine 0.2 mg/dL (<2.0); pH Urine 6.5 (5.0-9.0)
[2024-10-25 19:14] LABS: Amphetamine Screen Urine Negative (Negative); Barbiturate Screen Urine Negative (Negative); Benzodiazepines Screen Urine Negative (Negative); Cannabinoid Screen Urine Negative (Negative); Cocaine Screen Urine Negative (Negative); Methadone Screen Urine Negative (Negative); Opiate Screen Urine Negative (Negative); Phencyclidine Screen Urine Negative (Negative)
[2024-10-25] MEDS: FAMOTIDINE 20 MG TABLET PO (22:23)
[2024-10-26] VITALS: PULSE 78; RESP 21; O2SAT 97
[2024-10-26 00:15] VITALS: PULSE 80; RESP 19; O2SAT 97
[2024-10-26 00:49] VITALS: PULSE 80; RESP 17; O2SAT 99
== END 2024-10-26 00:57 | disposition short-term general hospital (02) ==
PROVIDERS: Emergency Provider Preventive Medicine Aerospace Medicine; PCP Nurse Practitioner Family
DX: G45.9 Transient cerebral ischemic attack, unspecified (principal); E87.1 Hypo-osmolality and hyponatremia; D64.9 Anemia, unspecified; I10 Essential (primary) hypertension; K21.9 Gastro-esophageal reflux disease without esophagitis; Z96.641 Presence of right artificial hip joint; Z87.891 Personal history of nicotine dependence; Z79.82 Long term (current) use of aspirin; Z79.899 Other long term (current) drug therapy; R94.31 Abnormal electrocardiogram [ECG] [EKG]; I51.7 Cardiomegaly
CPT/HCPCS: 36415; 70496; 70498; 71046; 80053; 80307; 81003; 82077; 84484; 85025; 93005; 99285; A9270; Q9967

== ENCOUNTER 2024-12-13 10:52 | Outpatient (CLI) | payer MEDICARE, SELFPAY ==
[2024-12-13 11:31] LABS: Basophils Absolute Auto 0.1 K/mm3 (0.0-0.1); Basophils Percent Auto 0.6 % (0.2-1.2); Eosinophils Absolute Auto 0.2 K/mm3 (0-0.3); Eosinophils Percent Auto 1.9 % (0-4.4); Hematocrit 39.8 % (37.0-47.0); Hemoglobin 12.3 g/dL (12.0-15.0); Immature Granulocyte Absolute 0.05 K/mm3 (0.00-0.031); Immature Granulocyte Percent A 0.6 % (0-0.5); Lymphocytes Absolute Auto 1.26 K/mm3 (0.9-3.2); Lymphocytes Percent Auto 16.1 % (18.3-44.2); Mean Corpuscular HGB Conc 30.9 g/dl (32-36); Mean Corpuscular Hemoglobin 27.2 pg (26-34); Mean Corpuscular Volume 87.9 fl (80-100); Mean Platelet Volume 9.5 fl (7.4-10.4); Monocytes Absolute Auto 0.4 K/mm3 (0.1-0.6); Monocytes Percent Auto 4.8 % (2.6-8.5); Platelet Count Result 379 k/mm3 (150-375); Red Blood Count 4.53 M/mm3 (4.2-5.4); Red Cell Distribution Width 20.4 % (11.5-14.5); White Blood Count 7.8 K/mm3 (4.5-10.0)
[2024-12-13 11:46] LABS: Anion Gap 7 mmol/L (4-12); Blood Urea Nitrogen 16 mg/dL (7-17); Calcium 9.7 mg/dL (8.4-10.2); Carbon Dioxide 26 mmol/L (22-30); Chloride 99 mmol/L (98-107); Estimated Glomerular Filt Rate 50; Glucose 118 mg/dL (65-110); Potassium 4.2 mmol/L (3.4-5.0); Sodium 132 mmol/L (137-145)
[2024-12-13 12:01] LABS: Iron 96 ug/dL (37-170)
[2024-12-13 12:11] LABS: Percent Iron Saturation 24 % (20-50)
--- OUTSIDE RECORDS SUMMARY | 2024-12-18 08:52 | XMS_ITS | Data Portability ---
Author Organization [facility] [employer], Main Office Address [address] [place] [address] Assessment Encounter Date Assessment Date Assessment LastModified by Organization Details LastModified Time 04/02/2024 04/02/2024 declines labs today, brother yesterday [email or web address] Not available 04/02/2024 12:07:07 11/12/2024 11/12/2024 I have reconciled the patient's medications post their discharge from inpatient facility. Not available 11/12/2024 14:01:02 Plan of Treatment Reminders Order Date Submit Date Provider Last Modified By Organization Details Last Modified Time Details Appointments Follow Up 30 2024 10:00A Celeste Pichardo NP Not available Not available Not available Lab BMP, serum or plasma 2023 024 [employer] [facility], [address], [address], 11/27/2024 08:00:47 iron + TIBC + ferritin, serum 2023 024 [employer] [facility], [address], [address], 11/27/2024 08:00:47 CBC w/ auto diff 2023 024 [employer] [facility], [address], [address], 11/27/2024 08:00:48 Referral None recorded. Procedures None recorded. Surgeries None recorded. Imaging None recorded. Medication Orders hydrochlo rothiazid e 25 mg tablet [address] [facility] [place], [address], 05/07/2024 10:19:21 escitalop trisha 10 mg tablet 2023 024 [email or web address] [facility], [address] [place], [address], 04/02/2024 12:02:34 hydrochlo rothiazid e 25 mg tablet [address] [facility] [place], [address], 05/07/2024 10:19:21 lisinopri l 40 mg tablet [address] [facility] [address] [place], [address], 11/12/2024 14:16:27 escitalop trisha 20 mg tablet [address] [facility] [address] [place], [address], 11/12/2024 14:02:24 ergocalci ferol (vitamin D2) 1,250 mcg (50,000 unit) capsule 2023 024 [facility] [address] [place], [address], 05/07/2024 11:11:13 trazodone 50 mg tablet 2023 024 [facility], [address] [place], [address], 09/12/2024 10:14:42 amlodipin e 5 mg tablet 2023 024 [email or web address] [facility], [address] [place], [address], 09/24/2024 15:43:48 losartan 100 mg tablet 2023 024 [facility] [place], [address], 11/12/2024 14:19:00 Patient TargetsNo targets recorded. Patient Instructions Encounter Date Encounter Id Patient Instructions Last Modified By Organization Details Last Modified Time 11/12/2024 [id number] Thank you for your visit to our office today. We would like to request that you reach out to your referring or previous provider and request that they send us a Summary of Care in electronic form, so that we may have it on file in your medical record. At your visit, we had the medical records we needed to provide you with the best possible care; however, for insurance purposes, an electronic Summary of Care is beneficial. Thank you for your assistance in obtaining this information and we look forward to providing continued care to you. Please review your medication list from the Summary of Care for this visit. If there are any differences from what you are currently taking at home, please call us to discuss. Not available 11/12/2024 14:01:02 Homebound Status : {{Patient has an inability to leave the home without a taxing effort and assistance from another person Does not meet homebound status*}} Required Home Health Services: {{none* penitentiary, physical therapy, occupational therapy penitentiary, physical therapy penitentiary}} Durable Medical Equipment needed: {{cane walker wal ker with seat manual wheelchair bedsid e commode oxygen}} Billing Guidelines CPT code 46430- Transitional Care Management services with moderate medical decision complexity (ciks-lh-kvfn visit within 14 days of discharge). CPT code 48966- Transitional Care Management services with high medical decision complexity (zzwh-ki-nvim visit within 7 days of discharge). [email or web address] Not available 11/12/2024 14:22:02 Reason for Referral None Reported. Results Created Date Observation Date Name Description Value Unit Range Abnormal Flag Note LastModifiedBy Organization Detail LastModifiedTime 10/25/20 24 10/25/2024 XR, chest , 2 view No observ ation record ed. [email or web address] [place] [address] [address] [facility] [address] [place] [address], [address], 10/27/2024 14:53:33 10/26/20 24 10/25/2024 XR, chest , 2 view No observ ation record ed. [email or web address] [address], [place], [address], 10/27/2024 09:56:19 Result Notes None recorded. Problems Name Problem SNOMED Code Status Onset Date Resolution Date Notes Provider Name and Address Organization Details Recorded Time Benign essential hypertensi on 4605114 Active Not Available [facility] 15:12[facility]43 Pain in right hip joint 8524006444332 02 Active 2021 Not Available [facility] 3 15:12:43 Hypertensi ve disorder 57965136 Active Not Available [facility] 3 15:12:43 Disorder of vitamin D 230396299 Active Not Available [facility] 15:12:43 Coronary arterioscl erosis 23026016 Active Not Available [facility] 15:12:43 Anemia 023477652 Active 2022 LYUBOV Martínez [address], [address], [place], [address] , [employer] 3 10:32:27 Gastroesop hageal reflux disease 926869927 Active 2022 LYUBOV Martínez [address], [address], [place], [address] , [employer] 3 10:33:26 EKG: T wave abnormal 438480560 Active 2022 LYUBOV Martínez [address], [address], [place], [address] , [employer] 3 11:05:14 Tobacco dependence syndrome 65366718 Active 2022 LYUBOV Martínez [address], [address], [place], [address] , [employer] 3 11:14:23 Heart murmur 31936733 Active 2022 LYBUOV Martínez [address], [address], [place], [address] , [employer] [facility] [employer] 3 13:00:26 Dysuria 93744597 Active 2023 Laura Humphries MD [address], [address], [place], [address] , [employer] 4 13:35:37 Essential hypertensi on 40642344 Active 2023 Laura Humphries MD [address], [address], [place], [address] , [employer] 4 14:48:45 Mixed anxiety and depressive disorder 721578688 Active 2023 Laura Humphries MD [address], [address], [place], [address] , [employer] 4 14:57:05 Vitamin D deficiency 82990356 Active 2023 YLUBOV Olivera [address], [address], [place], [address] , [employer] 4 11:04:39 Forgetful 10673718 Active 2023 LYUBOV Olivera [address], [address], [place], [address] , [employer] [facility] [employer] 4 11:09:56 Insomnia 501083952 Active 2023 ZURI Cole [address], [address], [place], [address] , [employer] [facility] [employer] 4 09:51:31 Hyponatrem ia 15778708 Active 2023 LYUBOV Olivera [address], [address], [place], [address] , [employer] [facility] [employer] 4 14:17:13 Iron deficiency anemia 42642817 Active 2023 LYUBOV Olivera [address] [facility], [address], [place], [address] , [employer] [facility] [employer] [facility] 4 14:17:18 Problem Notes None recorded. Procedures Surgical History Date Name Laterality Status Provider Name and Address Organization Details Recorded Time 11/12/20 24 Transitional_Car e_Management completed [place] [address], [place], [address], [facility] [employer] [facility] [employer] [facility] 11/12/2024 14:15:49 10/29/20 24 Date of Last Colonoscopy completed Mirta Mcgee RN [facility] [employer] [facility] 11/12/2024 14:06:22 section completed Not Available [facility] 01/24/2023 15:12:07 procedure on gallbladder completed Not Available [facility] 01/24/2023 15:12:07 Hysterectomy completed Not Available [facility] 01/24/2023 15:12:07 Imaging Results Imaging Date Name Status LastModified by Organiz ation Details LastModified Time 10/25/2024 XR, chest, 2 view completed [email or web address] [address] [place] [address], [address], 10/27/2024 14:53:33 10/25/2024 XR, chest, [address] view [address] [place] [address], [address], 10/27/2024 09:56:19 Procedure Notes None recorded. Medical Equipment None Reported. Allergies Allergen ID Allergen Name Allergen Category Reaction Reaction Severity Criticality Documentation Date Start Date Code Code System Note Provider Name and Address Organization Details Recorded Time 31591 Tylenol medicatio n Not available Not available Not available 01/24/2023 3 RxNorm Not Available [facility] 15:13:42 27605 lisinopri l medicatio n cough Not available low 11/12/2024 03123 RxNorm LYUBOV Olivera [address], [place], [address], [employer] [facility] [employer] [facility] 4 14:16:23 Medications Name Sig Start Date Stop Date Status Note LastModified by Organization Details LastModified Time celecoxib 200 mg capsule TAKE 1 CAPSULE BY MOUTH ONCE DAILY 01/15 completed Not Available Not Available Not Available atorvastati n 40 mg tablet Take 1 tablet every day by oral route. 09/15 completed Not Available Not Available Not Available trazodone 50 mg tablet take 1-2 tabs po as needed at bedtime for insomnia active Not Available Not Available No t Available tizanidine 4 mg tablet TAKE 1 TABLET BY MOUTH EVERY 6 TO 8 HOURS NEEDED 09/15 completed Not Available Not Available Not Available meloxicam 15 mg tablet Take 1 tablet every day by oral route. active Not Available Not Available No t Available lisinopril 20 mg tablet 2 po qday MK 11/09/2311/15 completed Not Available Not Available Not Available prednisone 20 mg tablet Take 2 tabs po daily x 5 days active Not Available Not Available No t Available hydralazine 25 mg tablet Take 1 tablet twice a day by oral route for 30 days. 11/12 completed Not Available Not Available Not Available amlodipine 5 mg tablet Take 1 tablet every day by oral route for 90 days. 09/24 completed Not Available Not Available Not Available omeprazole 40 mg capsule,del ayed release TAKE 1 CAPSULE BY MOUTH ONCE DAILY active Not Available Not Available No t Available tramadol 50 mg tablet Take 1 tablet every 8 hours by oral route as needed for 7 days. active Not Available Not Available No t Available cephalexin 500 mg capsule TAKE 1 CAPSULE BY MOUTH THREE TIMES DAILY 01/15 completed Not Available Not Available Not Available pantoprazol e 40 mg tablet,jacey yed release 11/12 completed Not Available Not Available Not Available neomycin-po lymyxin-dex ameth 3.5 mg/mL-10,00 0 unit/mL-0.1 % eye drops INSTILL 1 DROP INTO AFFECTED EYE(S) BY OPHTHALMI C ROUTE EVERY 3-4 HOURS WHILE AWAKE X 7 DAYS active Not Available Not Available No t Available lisinopril 10 mg tablet TAKE 1 TABLET BY MOUTH IN THE MORNING 11/09 completed Not Available Not Available Not Available gabapentin 300 mg capsule Take 1 capsule 3 times a day by oral route as needed. active Not Available Not Available No t Available aspirin 81 mg chewable tablet Chew 1 tablet every day by oral route for 30 days. 2022 active Not Available Not Available Not Avai lable hydrochloro thiazide 25 mg tablet Take 1 tablet every day by oral route. 05/07 completed Not Available Not Available Not Available diclofenac sodium 50 mg tablet,jacey yed release Take 1 tablet twice a day by oral route. active Not Available Not Available No t Available ergocalcife rol (vitamin D2) 1,250 mcg (50,000 unit) capsule TAKE 1 CAPSULE BY MOUTH ONCE A WEEK DIRECTED active Not Available Not Available No t Available lisinopril 40 mg tablet TAKE 1 TABLET BY MOUTH ONCE DAILY 11/12 completed Not Available Not Available Not Available losartan 100 mg tablet Take 1 tablet every day by oral route as directed for 90 days. active Not Available Not Available No t Available naproxen 500 mg tablet Take 1 tablet twice a day by oral route with meals for 30 days. active Not Available Not Available No t Available oxycodone 5 mg tablet TAKE 1/2 (ONE-HALF ) TABLET BY MOUTH EVERY 4 HOURS 01/15 completed Not Available Not Available Not Available escitalopra m 10 mg tablet TAKE 1 TABLET BY MOUTH ONCE DAILY 04/02 completed Not Available Not Available Not Available escitalopra m 20 mg tablet TAKE 1 TABLET BY MOUTH ONCE DAILY 11/12 completed Not Available Not Available Not Available nitrofurant oin monohydrate /macrocryst als 100 mg capsule TAKE 1 CAPSULE BY MOUTH EVERY 12 HOURS FOR 7 DAYS 04/02 completed Not Available Not Available Not Available Eliquis 2.5 mg tablet TAKE 1 TABLET BY MOUTH EVERY 12 HOURS 02/12 completed Not Available Not Available Not Available bupropion HCl 150 mg tablet,12 hr sustained-r elease(smok ing deterrent) TAKE 1 TABLET BY MOUTH TWICE DAILY 09/15 completed Not Available Not Available Not Available [employer] COVID-19 Ag Self Test kit Use as Directed on the Package 09/15 completed Not Available Not Available Not Available Vitals Date Recorded Body height Body mass index (BMI) Body weight Body temperature Heart rate Oxygen saturation Oxygen saturation in Arterial blood by Pulse oximetry Provider Name and Address Organization Details Last Updated DateTime 4 149.86 cm 23.6 kg/m2 80196.3 1 g 98.4 [degF] 86 /min 96 % 96 % Ronnie Nagel RN [facility] [employer] [facility] 4 14:39:17 Date Recorded Systolic blood pressure Diastolic blood pressure Provider Name and Address Organization Details Last Updated DateTime 02/13/2024 162 mm[Hg] 94 mm[Hg] Laura Humphries MD [address] [place] [address], [place] [address], [place], [address], [facility] [employer] [facility] 02/13/2024 15:02:07 Date Recorded Body height Body mass index (BMI) Body weight Body temperature Heart rate Oxygen saturation Oxygen saturation in Arterial blood by Pulse oximetry Systolic blood pressure Diastolic blood pressure Provider Name and Address Organization Details Last Updated DateTime 4 149.86 cm 22.4 kg/m2 06225.7 5 g 97.6 [degF] 90 /min 97 % 97 % 208 mm[Hg] 90 mm[Hg] Ronnie Nagel RN [facility] [employer] [facility] 4 11:58:10 Date Recorded Body height Body mass index (BMI) Body weight Body temperature Respiratory rate Heart rate Oxygen saturation Oxygen saturation in Arterial blood by Pulse oximetry Systolic blood pressure Diastolic blood pressure Provider Name and Address Organization Details Last Updated DateTime 4 149.86 cm 22.4 kg/m2 39782.4 5 g 97.7 [degF] 20 /min 78 /min 99 % 99 % 170 mm[Hg] 100 mm[Hg] Mirta Mcgee RN [facility] [employer] [facility] 4 10:21:40 Date Recorded Body height Body mass index (BMI) Body weight Body temperature Heart rate Oxygen saturation Oxygen saturation in Arterial blood by Pulse oximetry Systolic blood pressure Diastolic blood pressure Provider Name and Address Organization Details Last Updated DateTime 4 149.86 cm 23.2 kg/m2 04910.1 2 g 97.2 [degF] 81 /min 97 % 97 % 158 mm[Hg] 96 mm[Hg] Sherry Gonzales RN [facility] [employer] [facility] 4 09:48:55 Date Recorded Body height Body mass index (BMI) Body weight Body temperature Heart rate Respiratory rate Oxygen saturation Oxygen saturation in Arterial blood by Pulse oximetry Systolic blood pressure Diastolic blood pressure Provider Name and Address Organization Details Last Updated DateTime 4 149.86 cm 22.7 kg/m2 94380.5 g 98.2 [degF] 81 /min 20 /min 99 % 99 % 138 mm[Hg] 80 mm[Hg] Mirta Mcgee RN [facility] 14:05:03 Social History Question Answer Notes LastModified by Organization Details LastModified Time Tobacco Smoking Status Current Every Day Smoker Not Available [employer] 01/24/2023 15:12:03 Do You Have An Advance Directive? Yes Living Will MIGRATION.030 [id number] Information not available 01/24/2023 What Is Your Level Of Alcohol Consumption? None MIGRATION.030 [id number] Information not available 01/24/2023 Are You Blind Or Do You Have Difficulty Seeing? No MIGRATION.030 [id number] Information not available 01/24/2023 What Is Your Level Of Caffeine Consumption? Occasional Soda, Tea Information not available 05/07/2024 What Is Your Code Status? Other MIGRATION.030 [id number] Information not available 01/24/2023 In The 14 Days Before Symptom Onset, Have You Had Close Contact With A Laboratory-confi rmed COVID-19 While That Case Was Ill? No Information not available 05/07/2024 In The 14 Days Before Symptom Onset, Have You Had Close Contact With A Person Who Is Under Investigation For COVID-19 While That Person Was Ill? No Information not available 05/07/2024 Are You Currently Employed? No Retired Information not available 11/12/2024 Are You Deaf Or Do You Have Serious Difficulty Hearing? No MIGRATION.030 [id number] Information not available 01/24/2023 What Type Of Diet Are You Following? REGULAR MIGRATION.030 [id number] Information not available 01/24/2023 What Is The Highest Grade Or Level Of School You Have Completed Or The Highest Degree You Have Received? [id number] MIGRATION.030 [id number] Information not available 01/24/2023 Have There Been Any Changes To Your Family Or Social Situation? Yes Dog Information not available 05/07/2024 Do You Use Insect Repellent Routinely? No Information not available 05/07/2024 Where Do You Live? SingleLevelHouse Information not available 05/07/2024 Do You Have A Medical Power Of Digital Ad Trafficker? No Information not available 11/12/2024 How Many Children Do You Have? 2 Information not available 05/07/2024 Do You Have Any Pets? Yes Information not available 05/07/2024 What Is Your Relationship Status? MIGRATION.0301 [id number] Information not available 01/24/2023 Do You Use Your Seat Belt Or Car Seat Routinely? Yes Information not available 05/07/2024 Do You Have Smoke And Carbon Monoxide Detectors In Your Home? Yes Information not available 05/07/2024 Are You Passively Exposed To Smoke? Yes Information not available 05/07/2024 Are There Any Smokers In Your House? Yes Information not available 05/07/2024 How Much Tobacco Do You Smoke? 0.5 PPD MIGRATION.0301 [id number] Information not available 01/24/2023 Do You Participate In Social Media? Yes Information not available 05/07/2024 Do You Feel Stressed (tense, Restless, Nervous, Or Anxious, Or Unable To Sleep At Night)? [id number] Information not available 05/07/2024 Do You Use Sunscreen Routinely? No Information not available 05/07/2024 Has Tobacco Cessation Counseling Been Provided? No MIGRATION.0301 [id number] Information not available 01/24/2023 Have You Recently Traveled Abroad? No MIGRATION.0301 [id number] Information not available 01/24/2023 Do You Have Any Dietary Restrictions? No MIGRATION.0301 [id number] Information not available 01/24/2023 Sex: Unknown Functional Status Question Answer Note LastModified by Organizat ion Details LastModified Time Do you have difficulty walking or climbing stairs? No [id number] Information not available 01/24/2023 Do you have transportation difficulties? No MIGRATION.[id number] 026 Information not available 01/24/2023 Are you able to walk? YESWOREST MIGRATION.[id number] 026 Information not available 01/24/2023 Do you have difficulty doing errands alone? No Information not available 05/07/2024 Are you able to care for yourself? No MIGRATION.[id number] 026 Information not available 01/24/2023 Do you have difficulty dressing or bathing? No Information not available 05/07/2024 What is your exercise level? Occasional MIGRATION.[id number] 026 Information not available 01/24/2023 Mental Status Question Answer Note LastModified by Organizat ion Details LastModified Time Do you have difficulty concentrating, remembering or making decisions? No grand daughter thinks she does Information not available 05/07/2024 Family History Relationship Description Onset Age of this Age Resolved Age Notes LastModified by Organization Details LastModified Time Brother Heart disease [email or web address] Not available 2023 12:03:28 Brother Heart disease [email or web address] Not available 2023 12:03:29 Notes:Mother thyroid issues dont remember what kind Medical History Condition Response ANXIETY DISORDER Y DEPRESSION (INCLUDING POST ) Y HEARTBURN / REFLUX Y HAVE YOU BEEN HOSPITALIZED OR SEEN IN [facility] ER IN THE PAST YEAR ? Y HYPERTENSION Y Gynecological History Statement/Question Response Date of Last Colonoscopy 10/29/2024 Most Recent Bone Density Menses Monthly N Date of Last Pap Smear Current Control Method Menopause Most Recent Mammogram Breast Problems no Discharge no Obstetrics History GPAL:G 0 P 0 0 0 0 Past Encounters Encounter ID Performer Location Encounter Start Date Encounter Closed Date Diagnosis/Indication Diagnosis SNOMED-CT Code Diagnosis ICD10 Code Diagnosis Note [id number] [facility] [address] [facility] [address] [place] [address] 05/02/2022 00:00:00 05/02/2022 13:58:59 [id number] [facility] [address] [facility] [address] [place] [address] 09/04/2022 00:00:00 09/04/2022 09:27:01 [id number] [facility] [place] [address] [place] [address] 09/15/2022 00:00:00 09/17/2022 15:51:36 [id number] [facility] [place] [address] [facility] [address] [place] [address] 09/29/2022 00:00:00 09/30/2022 20:15:48 [id number] [facility] [address] [facility] [address] [place] [address] 12/12/2022 00:00:00 12/12/2022 20:03:01 [id number] [facility] [place] [address] [facility] [address] [place] [address] 12/29/2022 00:00:00 12/29/2022 09:34:47 [id number] [facility] [place] [address] [facility] [address] [place] [address] 01/15/2023 00:00:00 01/15/2023 14:51:58 [id number] KETAN Butler [facility] [place] [address] [facility] [address] [place] [address] 02/12/2023 13:46:46 02/12/2023 14:44:13 History of total replacement of right hip joint 7803823500 96507 Z96.113 [id number] LYUBOV Martínez [facility] [address] [facility] [address] [place] [address] 08/29/2023 09:27:57 08/29/2023 12:45:43 Benign essential hypertension 2741608 I10 New problem, acute finding on exam today.BP today 200/98 and upon recheck 178/110. No complaints of CP, SOB, jaw pain, arm pain. She has never taken anything for HTN before. Discussed the need for dietary modificati on, low sodium intake, manage stress, quit smoking, maintain healthy weight, and limit caffeine. Also talked about signs of a heart attack and stroke and advised to go to the ER if she develops any of these symptoms. Discussed the referral for an echocardio gram. Also discussed the need for daily baby aspirin for stroke/KS prevention . Upon review of the EKG performed in office, she has pronounced LVH with T-wave inversion in leads V5, V6, and aVL. Discussed recommenda tions to go to the ER due to likely cardiac ischemia. She has a family member available to take her to the ER right now. Gave a copy of the EKG to take with her to the ER. 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 Declines taking a supplement in the meantime. Discussed Anemia 171180855 D64.9 Chronic,Pr eviously unknown if she had iron studies performed. She believes she did as she has been diagnosed with RICHY before. Will prescribe a MVI with iron and discussed vitamin C foods with use. Gastroesop hageal reflux disease 035461324 K21.9 Chronic well controlled Reviewed dietary measures to prevent GERD. Discussed possibilit y of B12 deficiency with PPI use. Will also prescribe MVI with iron. EKG: T wave abnormal 164 951590 R94.31 AcuteT-wav e inversion in leads V5, V6, and aVL. Discussed these findings with the patient. No previous EKG on file for comparison . In combinatio n with her new grade 3/6 murmur in the right sternal border, elevated BP to 178-200/98 -110, we are sending her to the ER for emergent evaluation . She endorses understand ing and plans to have a family member to drive her to the ER. Tobacco de pendence syndrome [id number] F17.200 Meg previously quit successful ly cold turkey for her surgical clearance. She started smoking again due to stress. Most people in her household smoke or use e-cigarett es. She hasn't set a quit date yet but is working on when would work best. Discussed the aid of medication s (Chantix, nicotine patches, Wellbutrin ). She declines these at this time. Will continue to follow closely. Heart murmur [id number] R0 1.1 New finding on examSuspec t Aortic regurg based on sound present at right, mid-clavic ular line. Rate murmur at III/. Although pt is asymptomat ic at this time, her bp is very elevated and ECG abnormal in office today.Pt advised to be seen in ER today. Referred to cardiology and sent for echo as well. [id number] LYUBOV Martínez [facility] Primary [facility] [address] [facility] [place] [address] 09/13/2023 10:13:28 09/13/2023 11:23:43 Hypertensive disorder [id number] I10 Chronic, improved from last visit, but not to goal.Pt started on lisinopril during inpatient tx. Notes indicate recommenda tion to titrate dosing up during f/u appt.BP 160/94 today. Asymptomat ic at this time; denies CP, SOB, vision changes, or palpitatio ns. Discussed recommende d dietary changes.Wi ll increase lisinopril from 10 mg to 20 mg.Will work to get BP well controlled and no need to re-check BNP at this time. 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 Has been taking 50,000 IU weekly for the past two weeks. Feels less fatigued. Recommend continuati on of vitamin D supplement ation. Hasn't been taking supplement enough to justify rechecking vitamin D levels today. Will recheck at later date after she has been taking supplement ation longer. Tobacco de pendence syndrome 45154008 F17.200 Meg previously quit successful ly cold turkey for her surgical clearance. She started smoking again due to stress. Most people in her household smoke or use e-cigarett es.Will set a length of time for how long a pack of cigarettes will last and extend that length of time every week.Discu ssed the aid of medication s (Chantix, nicotine patches, Wellbutrin ). She declines these at this time. Will continue to follow closely. EKG: T wave abnormal 164 694175 R94.31 09/13/23: Sx appear resolved following correction of BP. Reviewed inpatient notes. Cardiac testing negative for infarct or signs of heart failure. Sx attributed to uncontroll ed hypertensi on. 08/29/23: T-wave inversion in leads V5, V6, and aVL. Discussed these findings with the patient. No previous EKG on file for comparison . In combinatio n with her new grade 3/6 murmur in the right sternal border, elevated BP to 178-200/98 -110, we are sending her to the ER for emergent evaluation . She endorses understand ing and plans to have a family member to drive her to the ER. Herpes zos ter vaccination not done [id number] 109 Z28.9 Would like to get shingrix today. Has [facility] and Medicare supplement al coverage. Recommend going to local pharmacy to get this injection. [id number] KETAN Bocanegra [facility] Primary Care [address] [place] [address] 10/15/2023 10:27:03 10/15/2023 13:36:41 Benign essential hypertension 0824300 I10 Home readings most likely inaccurate .Advised pt. to come in over next 1-2 weeks and bring home BP cuff with her to calibrate. She has had no symptoms. Denies chest pain, SOB.Will adjust medication if needed after next BP check. Tobacco de pendence syndrome 88601534 F17.200 Smoking 1/2ppd. She is still working on smoking cessation. [id number] Laura Humphries MD [facility] Primary Care [address] [place] [address] 11/15/2023 10:50:23 11/29/2023 11:43:58 [id number] Laura Humphries MD [facility] Primary Care [address] [place] [address] 02/13/2024 14:22:35 02/13/2024 15:02:21 Essential hypertension 58204183 I10 add hctz 25 mg dailyconti nue lisinopril 40 mg dailybring in wrist cuff at next appt to calibratep allegra labs at next appt Mixed anxi ety and depressive disorder 572416451 F41.8 begin escitalopr am 10 mg with foodreview ed potential med s/ef/u in 6 weeks [id number] Laura Humphries MD [facility] Primary Care [address] [place] [address] 04/02/2024 11:51:42 04/02/2024 12:10:26 Mixed anxiety and depressive disorder 505802209 F41.8 begin escitalopr am 10 mg with foodreview ed potential med s/ef/u in 6 weeks 04/02/24: increase escitalopr am 20 mg daily Essential hypertension 46249601 I10 continue hctz 25 mg dailyconti nue lisinopril 40 mg dailybring in wrist cuff at next appt to calibratep allegra labs at next appt [id number] LYUBOV Olivera [facility] [address] [place] [address] 05/07/2024 10:12:11 05/07/2024 11:34:33 Vitamin D deficiency 10705773 E55.9 Forgetful 53128433 R41.3 Mini-cog score is 5, patient to notify us if she feels this is worsening. Declines neuro referral.D enies misplacing objects, feeling lost or confused [id number] LYUBOV Cole-Rosangela [facility] Primary Care [facility] [address] [facility] [address] [place] [address] 09/12/2024 09:32:23 09/12/2024 10:06:02 Insomnia 753478697 G47.00 having trouble staying asleepaver age 5 hours of sleep, can wake up every hour sometimesg ets tired really easyfeels groggy most days when waking uptrial trazodone Essential hypertension 12432451 I10 using lisinopril 40mg currentlyb p 158/96 no stern cp sobno water intake, encouraged 6-8 glasses of waterdrink s tea/soda, chews icechecks bp at home with auto cuff, noting ranges 150-160s systolicen courage goal of 140/90tria l amlodipine 5mg, can titrate to 10mg to meet goal [id number] LYUBOV Olivera [facility] [address] [place] [address] 11/12/2024 13:56:56 11/12/2024 14:22:34 Transition of care [id number] 105 Z75.8 Patient is doing well, no concerns today Essential hypertension 31196982 I10 Stop lisinopril due to cough Hyponatremia 12483610 E8 7.1 Pt stopped sodium chloride due to skin peeling Iron defic iency anemia 25180622 D50.9 Take OTC iron supplement Health Concerns Section Related Observation LastModified by Organization Detai ls LastModified Time None Recorded Concern Status LastModified by Organization Details LastModified Time None Recorded Advance Directives Directive Y: living will Payers Encounter Date Sequence Insurance Name Policy Number Policy Moore Covered Member ID Moore Member ID Guarantor Name 02/13/2024 1 [facility] (MEDICARE REPLACEMENT/A DVANTAGE - HMO) [id number] Ash Veliz [id number] Ash L Veliz 04/02/2024 1 [facility] (MEDICARE REPLACEMENT/A DVANTAGE - HMO) [id number] Ash Veliz [id number] Ash L Veliz 05/07/2024 1 [facility] (MEDICARE REPLACEMENT/A DVANTAGE - HMO) [id number] Ash Veliz [id number] Ash L Veliz 05/07/2024 2 [place] Ash L Veliz [id number] Ash L Veliz 09/12/2024 1 [facility] (MEDICARE REPLACEMENT/A DVANTAGE - HMO) [id number] Ash Veliz [id number] Ash L Veliz 09/12/2024 2 [place] Ash L Veliz [id number] Ash L Veliz 11/12/2024 1 [facility] (MEDICARE REPLACEMENT/A DVANTAGE - HMO) [id number] Ash Veliz [id number] Ash L Veliz Notes Date Note Type Note Provider Name and Address Organization Details Recorded Time 02/13/2024 text/html home readings wi th wrist cuff 120s/80s Daughter thinks she may be depressed. She retired last January from [employer] after 27 years. Mood is irritable, sleep is not good-takes an hour to fall asleep. Has h/o poor sleep. She wakes up 2-3x per night to urinate. Interests are down, motivation is ok, family members think she is forgetful, energy is so/so, appetite is ok. she watches her 2 years old great granddaughter most weekdays. She is sharing her car with granddaughter. Laura Humphries MD [address] [place] [address], [place] [address], [place], [address], [facility] [employer] 02/24/2024 09:10:33 04/02/2024 text/html Brother passed a way yesterday at age 63 from heart attack. Home blood pressures are 100s-120s/60s-80s. Laura Humphries MD [address], [place], [address], [employer] 04/13/2024 12:45:31 05/07/2024 text/html Ash Veliz is a 69 year old female patient of Dr. Humphries here today to discuss memory issues. Ash states that her granddaughter tells her that she is becoming more forgetful within the last few months. She scores a 5 on the mini-cog exam For the last few days, she has had hot flashes. She has had a total hysterectomy. She denies feelings of illness. She states that these are mainly at night. She has to get up at night and turn the air on. Advised to keep the air on during these hot summer nights. Bloodwork offered, pt declined LYUBOV Olivera [address], [place], [address], [employer] 05/07/2024 11:11:10 09/12/2024 text/html pt is here for f/u ZURI Jimenez [address], [place], [address], [employer] 09/12/2024 10:15:43 11/12/2024 text/html Here today for Hospital FU Ash reported to the ER on 10/26/24 for concerns of dizziness. Was admitted to [facility] on 10/26/24 for absolute anemia and hyponatremia. Discharge on 10/29/24 Was discharge with OTC iron supplement and sodium chloride 1 gm BID. States that the sodium chloride caused her hands to peel. Colonoscopy/EGD was performed and GI bleeding rules. She does have hypertension. Is taking lisinopril but notices dry cough LYUBOV Olivera [address], [place], [address], [employer] [facility] [employer] 11/12/2024 14:23:52 OBGyn Episode No OBEpisode recorded.
== END 2024-12-13 10:53 | disposition home or self-care (01) ==
LOC: ANHLAB 10:56
DX: E87.1 Hypo-osmolality and hyponatremia (principal); D50.9 Iron deficiency anemia, unspecified
CPT/HCPCS: 36415; 80048; 82728; 83540; 83550; 85025